=== PATIENT | female | born 1950 | race Caucasian/White ===

== ENCOUNTER 2023-06-03 13:09 | Outpatient (RCR) | payer MEDICARE, OTHER, SELFPAY | END 2023-06-03 23:59 | disposition home or self-care (01) | LOC: RPT 13:09 | PROVIDERS: ATTENDING PHYSICIAN Internal Medicine; FAMILY PHYSICIAN Family Medicine | DX: I89.0 Lymphedema, not elsewhere classified (principal); R26.89 Other abnormalities of gait and mobility; Z73.6 Limitation of activities due to disability | CPT/HCPCS: 97110; 97530 ==

== ENCOUNTER 2023-07-14 12:27 | Outpatient (RCR) | payer MEDICARE, OTHER, SELFPAY | END 2023-07-14 23:59 | disposition home or self-care (01) | LOC: RPT 12:27 | PROVIDERS: ATTENDING PHYSICIAN Internal Medicine; FAMILY PHYSICIAN Family Medicine | DX: I97.2 Postmastectomy lymphedema syndrome (principal); R26.89 Other abnormalities of gait and mobility; Z73.6 Limitation of activities due to disability; C50.919 Malignant neoplasm of unspecified site of unspecified female breast; C77.9 Secondary and unspecified malignant neoplasm of lymph node, unspecified | CPT/HCPCS: 97530 ==

== ENCOUNTER 2023-09-11 22:40 | Inpatient (IN) | payer MEDICARE, OTHER, SELFPAY ==
[2023-09-11] VITALS (21 sets, daily range): BP systolic 70–103; BP diastolic 34–66; BMI 35.5; BMI 34.7
[2023-09-11 19:15] LABS: % Basophils 0.1 % (0-2); % Immature Granulocytes 0.6 % (0-0.5); % Lymphocytes 7.8 % (20.5-51.1); % Neutrophils 84.5 % (42.2-75.2); Absolute Eosinophils 0.1 10^3/uL (0-0.7); Absolute Lymphocytes 0.5 10^3/uL (1.2-3.4); Absolute Monocytes 0.4 10^3/uL (0.1-0.6); Absolute Neutrophils 5.9 10^3/uL (1.4-6.5); Hematocrit 30.5 % (37.0-47.0); Hemoglobin 10.2 g/dL (12.0-16.0); Mean Corp Hgb Conc. 33.4 g/dL (33.0-37.0); Mean Corpuscular Hgb 29.6 pg (27.0-31.0); Mean Corpuscular Volume 88.4 fL (81.0-99.0); Nucleated Red Blood Cells % 0 %; Red Blood Cell Count 3.45 10^6/uL (4.20-5.40); Red Cell Dist. Width 21.2 % (11.5-14.5)
[2023-09-11 19:27] LABS: Lactic Acid 2.5 mmol/L (0.7-2.0)
[2023-09-11 19:34] LABS: Platelet Count 36 10^3/uL (130-400)
[2023-09-11 19:52] LABS: ALT (SGPT) 15 U/L (0-35); AST (SGOT) 26 U/L (14-36); Albumin 2.3 g/dl (3.5-5.0); Alkaline Phosphatase 103 U/L (38-126); Blood Urea Nitrogen 18 mg/dl (7-17); Carbon Dioxide 24 mmol/L (22-30); Chloride 101 mmol/L (98-107); Estimated Creatinine Clearance 88 ml/min; Glucose 118 mg/dl (70-99); Potassium 4.4 mmol/L (3.5-5.1); Sodium 126 mmol/L (135-145); Total Bilirubin 0.7 mg/dl (0.2-1.3); Total Protein 4.6 g/dl (6.3-8.2); eGFR > 60.00
[2023-09-11] MEDS: DILAUDID 1 MG IV (20:27)
--- NOTE | 2023-09-11 20:30 | ED.GENMED ---
History of Present Illness
General
Chief Complaint: Swelling
Source: patient and family (daughter)
Exam Limitations: other (Patient in and out of it)
Time Seen by Provider: 09/11/23 18:32
Travel History
Have you had any contact with someone who has COVID-19?: Unable to Answer
Do you have any symptoms of coronavirus? Fever > 100 degrees, chills, cough, shortness of breath, sore throat, loss of taste or smell, muscle aches, or headache?: Yes
Symptoms:: fever
History of Present Illness
History of Present Illness:
This is a 73 year old female that is brought in with c/o increased pain on the right chest and back and weakness. Daughter states that she has increased pain in her right back area and they felt the area was swelling more. States that they also felt
that the patient was more disoriented then normal. States that she was unable to carry on a conversation so they called the nurse and they sent patient to the ER. States that she was found to have a fever here. Patient states that she also had
chills and SOB. Denies any chest pain, abd pain, nausea, vomiting, diarrhea, headache, dizziness, urinary burning.
Past History
Past History
ED Past Medical History: Asthma, Cancer (Breast CA), COPD, CVA (Right sided facial involvement but daughter states that this is getting better ), GERD, Psychiatric (Anxiety, Depression) and Other (LBBB, 20% EF, Anemia, )
ED Past Surgical History: Appendectomy, Cardiac (Pacemaker), Orthopedic (laminectomy) and Tonsilectomy
Social History
Tobacco: Non-smoker
Alcohol: None
Personal:
Living: fci ([facility])
Review of Systems
Review of Systems
Other source history: family
All Other Systems: ROS reviewed and negative except as documented in HPI and ROS
Constitutional: Reports fever and chills
EENT: Reports no symptoms
Respiratory: Reports trouble breathing; Denies cough
Cardiac: Reports no symptoms; Denies chest pain
ABD/GI: Reports no symptoms; Denies abdominal pain, nausea, vomiting or diarrhea
: Reports no symptoms; Denies dysuria, frequency or urgency
Musculoskeletal: Reports other (right arm pain)
Skin: Reports no symptoms
Neurological: Reports no symptoms; Denies dizzy or headache
Psychiatric: Reports no symptoms
Phy Exam
General Physical Exam
General Presentation: mild distress
General age: appears stated age
General Skin: warm, dry and other (right sided chest shoulder and into back discoloration of skin due to cancer. )
General Habitus: elderly
General Mental: confused (occasionally in and out of confusion)
General Hydration: dry mucous membranes
ENT Exam
ENT Exam: TM's normal and pharynx normal
Eye Exam
Eye Exam: EOMI
Cardiovascular Exam
Cardiovascular Exam: pacemaker
Pulmonary Exam
Pulmonary Exam: no respiratory distress, no rhonchi, no wheezing, no cough and other (rales right lung, left lung clear)
Gastrointestinal Exam
Gastrointestinal Exam: normal bowel sounds, non tender, soft, no organomegaly, no pulsatile mass and non distended
Musculoskeletal Exam
Musculoskeletal Exam: edema (Chronic right arm lymphedema) and other (Swelling of the right chest into the right back area)
Skin Exam
Skin Exam: other (cancer rash of the right chest, breast and around to the back. deep red in color and cries in pain when touched. areas of oozing)
Psychiatric Exam
Psychiatric Exam: other (Crying with pain with movement, In and out of confusion)
Scores
Heart Failure Risk
Heart Failure Risk Score: Not Applicable
Course
Orders/Labs/Results
Orders:
Orders
09/11/23 18:55
EKG PRN [ECG as needed] As Directed
ECG as needed for:: Other reason
Other reason for ECG as needed:: sepsis
09/11/23 18:58
Complete Blood Count/With Diff Urgent
Comprehensive Metabolic Panel Urgent
Lactic Acid Urgent
09/11/23 19:07
Blood Culture Q30M
LISA Source: Blood/Venous
Specimen Description:
Blood Culture Q30M
LISA Source: Blood/Venous
Specimen Description:
09/11/23 20:25
HYDROmorphone [Dilaudid] 1 mg .ROUTE .STK-MED ONE
09/11/23 20:26
HYDROmorphone [Dilaudid] 1 mg IV NOW STA
HYDROmorphone [Dilaudid] 1 mg IV NOW STA
09/11/23 20:27
0.9% Sodium Chloride 500 ml [Nss] 500 ml IV BOLUS
CR Chest Portable - 1 View Urgent
Comment:
Reason For Exam: Rales right chest, SOB
Reason Study Needs to be Portable: Unable to Transport
09/11/23 20:32
Acetaminophen 1000MG/100Ml [Ofirmev] 1,000 mg in 100 ml IV ONCE
Acetaminophen IV Indication:: ED Narcotic Naive Pt-ONCE
09/11/23 20:59
0.9% Sodium Chloride 500 ml [Nss] 500 ml IV BOLUS
Piperacillin/Tazo 3.375 Gram [Zosyn] 3.375 gram in 50 ml IV NOW
Vancomycin 1 Gram/200 ml [Vancocin] 1 gram in 200 ml IV NOW
09/11/23 21:42
Urinalysis Reflex To Culture Urgent
Date Specimen was Collected: 09/11/23
Time Specimen was Collected: 21:41
09/11/23 21:47
Admit/Transfer Patient As Directed
Co-Sign Provider:
Level of Care: Inpatient admission
Assign to:: IMU- Intermediate Care
Physician / Group: Hospitalist
Diagnosis: Sepsis, pain
Reason for Hospitalization: Sepsis, Pain
Expected length of stay greater than two midnights?: Yes
ELOS- Estimated Length of Stay in days: 3
I certify the patient meets the requirements for IP care: Yes
09/11/23 21:50
Code Status As Directed
Resuscitation Status: Full Code
Abnormal Lab Results
09/11/23 09/11/23
18:58 21:42
RBC 3.45 L 10^6/uL
(4.20-5.40)
Hgb 10.2 L g/dL
(12.0-16.0)
Hct 30.5 L %
(37.0-47.0)
RDW 21.2 H %
(11.5-14.5)
Plt Count 36 L 10^3/uL
(130-400)
Absolute Lymphs (auto) 0.5 L 10^3/uL
(1.2-3.4)
Immature Gran % 0.6 H %
(0-0.5)
Neutrophils % 84.5 H %
(42.2-75.2)
Lymphocytes % 7.8 L %
(20.5-51.1)
Sodium 126 L mmol/L
(135-145)
BUN 18 H mg/dl
(7-17)
Glucose 118 H mg/dl
(70-99)
Lactic Acid 2.5 H mmol/L
(0.7-2.0)
Calcium 8.0 L mg/dl
(8.4-10.2)
Total Protein 4.6 L g/dl
(6.3-8.2)
Albumin 2.3 L g/dl
(3.5-5.0)
Urine Ketones Trace A
(Negative)
Urine Bilirubin 1+ A
(Negative)
09/11/23 18:58
09/11/23 18:58
H/H low. Thrombocytopenia, Hyponatremia, Slight Dehydration. Glucose nonfasting, Lactic acid elevation. Calcium slightly low. total protein low. Albumin low lactic 2.5 , Urine negative for infection.
Vital Signs
Initial and Last Documented VS:
Initial Vital Signs
Pulse Resp Pulse Ox
113 21 84
09/11/23 18:42 09/11/23 18:42 09/11/23 18:42
Last Documented Vital Signs
Temp Pulse Resp BP Pulse Ox
103 F H 92 16 85/45 93
09/11/23 18:45 09/11/23 22:00 09/11/23 22:00 09/11/23 22:00 09/11/23 22:00
MDM/Problems Addressed
Differential Diagnosis Includes:
Progression of Breast CA, Septic, PNA
MDM/Problems Addressed:
This is a 73 year old female that comes in with c/o pain in the right back and swelling. Daughter states that her sister felt that her right back was more swollen. sates that the patient has seemed more confused and been going in and out of it.
States that she screams with pain when touched.
Will get labs, Chest x-ray and admit. Explained to daughter that her lactic acid is elevated and her sodium is low. Questioned if patient was on Hospice and daughter states not yet. [facility]o admit patient. Hospitalist notified.
Chronic conditions affecting care: Cancer
Acute Exacerbation and/or Progression of Chronic Illness: Cancer
*Radiology
Radiology exam reviewed: preliminary read by ED provider (Chest- right lower lobe Pneumonia)
*Pulse Oximetry
Patient hypoxic: yes
*EKG
Interpreted by ED Provider?: NA
Rate: EKG- N/A
*Machine Engineer Interpretation
Rate: tachycardiac
Heart Rate: 124
Rhythm: av sequential
*Critical Care Note
Total Time (30-74mins, 75-104mins- exclusive of procedures): Not Applicable
ED Attending Note
-
Portions of this chart may have been created with voice recognition software.� Occasional wrong word or��sound alike� substitutions may have occurred due to the inherent limitations of voice recognition software.
Discharge Plan
Departure
Patient Disposition: Admit
Date of Disposition: 09/11/23
Time of Disposition: 22:29
Admit to: Med/Surg
Presentation/result/management discussed w/ accepting MD/DO: Hospitalist
Patient with high blood pressure during this ER visit?: No
Condition: Fair
Covid-19: Not Applicable
Discharge Problem:
Right lower lobe pneumonia, Hyponatremia, Acute pain control
Prescriptions:
No Action
hydromorphone 2 mg Tablet
3 mg PO Q3HPRN PRN (Reason: pain)
omeprazole 20 mg Tablet,Delayed Release (Dr/Ec)
20 mg PO DAILY
multivitamin Tablet
1 tab PO DAILY
sennosides [senna] 8.6 mg Tablet
17.2 mg PO HS
albuterol sulfate 2.5 mg /3 mL (0.083 %) Solution For Nebulization
2.5 mg INHALATION Q6H PRN (Reason: SOB)
clonazepam 0.5 mg Tablet
0.5 mg PO BID PRN (Reason: anxiety)
morphine 30 mg Tablet Extended Release
30 mg PO Q8H
acetaminophen 500 mg Tablet
1,000 mg PO TID PRN (Reason: pain)
carvedilol 3.125 mg Tablet
3.125 mg PO BID
benzonatate 100 mg Capsule
100 mg PO TID PRN (Reason: cough)
ropinirole 2 mg Tablet
2 mg PO . 1 PM
ropinirole 2 mg Tablet
2 mg PO . 8 PM
losartan 25 mg Tablet
25 mg PO DAILY
morphine 15 mg Tablet Extended Release
15 mg PO . 6 AM
Rx Instructions:
with 30mg tablet
morphine 15 mg Tablet Extended Release
15 mg PO . 2 PM
Rx Instructions:
with 30mg tablet
gabapentin 100 mg Capsule
300 mg PO TID
loratadine [Claritin] 10 mg Tablet
10 mg PO DAILY
bisacodyl 5 mg Tablet
10 mg PO HS
ezetimibe [Zetia] 10 mg Tablet
10 mg PO DAILY
sodium chloride 1,000 mg Tablet,Soluble
1,000 mg PO TID
tiotropium bromide 2.5 mcg/actuation Mist
2 puff INHALATION DAILY
Eliquis 5 mg Tablet
5 mg PO BID
guaifenesin [Mucinex] 600 mg Tablet Extended Release 12hr
600 mg PO Q12H
Referrals:
Sasha Cabrera MD [Family Provider] -
Interventions
Interventions:
*Risk Screen - Suicide Last Done: 09/11/23 18:52
*General Assessment Last Done: 09/11/23 18:52
*Neglect/Abuse Screening Last Done: 09/11/23 18:52
ED- Fall Risk Assessment Last Done: 09/11/23 20:39
*ED COVID-19 Vaccine History Last Done: 09/11/23 18:53
ED- Cardiac Assessment Last Done: 09/11/23 20:39
ED- Pulmonary Assessment Last Done: 09/11/23 20:39
ED-Skin Assessment Last Done: 09/11/23 20:39
Discharge Date and Time
Print Language: VIETNAMESE
[2023-09-11] MEDS: OFIRMEV 100 IV (20:44)
[2023-09-11] MEDS: NSS 500 IV ×2 (20:44→21:48)
[2023-09-11] MEDS: VANCOCIN 200 IV (21:16)
[2023-09-11] MEDS: ZOSYN 50 IV (21:16)
--- NOTE | 2023-09-11 21:23 | HPS.HSE ---
Family Physician
-
Family Physician: Sasha Cabrera
Chief Complaint
-
Chest wall pain
History of Present Illness
73 year old woman with c/o increased pain on the right chest and back, weakness. Patient has had increased pain in her right back area with increased swelling more. Also, more disoriented then normal. She was unable to carry on a conversation so
she was sent to the ER. Found to have a fever in ER, with chills and SOB. She denies any chest pain, abd pain, nausea, vomiting, diarrhea, headache, dizziness, urinary burning. She has metastatic breast cancer, undergoing chemo (last chemo on 08/19),
s/p radiation, planning on more radiation in 3 days. Requires large doses of opioids for pain control.
Medical History
Past Medical History
Past Medical History: Reports Other
Additional Past Medical History:
Asthma,
Cancer (Breast CA),
COPD,
CVA (Right sided facial involvement),
GERD,
Anxiety,
Depression
LBBB,
20% EF,
Anemia
Appendectomy,
Cardiac (Pacemaker)
laminectomy
Tonsilectomy
Past Surgical History: Reports Other
Additional Past Surgical History:
See above
Social History
Tobacco: Non-smoker
Alcohol: None
Living: Residential
Family History
Family History: Not pertinent
Allergies / Home Medications
Allergies reflects when Allergies were last updated in [email or web address].
Home Medications with original date entered in [email or web address]
Allergy/Medication List:
Allergies
Allergy/AdvReac Type Severity Reaction Status Date / Time
aprepitant [From Emend] Allergy Severe Anaphylaxis Verified 10/30/22 09:07
fosaprepitant [From Emend] Allergy Severe Anaphylaxis Verified 10/30/22 09:07
docetaxel Allergy Intermediate Hives Verified 10/30/22 09:07
cyclophosphamide Allergy Mild Rash Verified 10/30/22 09:07
[From Cytoxan]
latex Allergy Mild Rash Verified 10/30/22 09:16
lisinopril Allergy Unknown Verified 09/11/23 18:44
losartan Allergy Unknown Verified 09/11/23 18:43
sacubitril [From Entresto] Allergy Unknown Verified 09/11/23 18:44
simvastatin Allergy Unknown Verified 09/11/23 18:44
valsartan [From Entresto] Allergy Unknown Verified 09/11/23 18:44
iv contrast dye Allergy Swelling Uncoded 10/30/22 09:16
Home Medications
acetaminophen 500 mg tablet 1,000 mg PO TID PRN pain 09/11/23
albuterol sulfate 2.5 mg/3 mL (0.083 %) solution for nebulization 2.5 mg inhalation Q6H PRN SOB 09/11/23
apixaban 5 mg tablet (Eliquis) 5 mg PO BID 09/11/23
benzonatate 100 mg capsule 100 mg PO TID PRN cough 09/11/23
bisacodyl 5 mg tablet 10 mg PO HS 09/11/23
carvedilol 3.125 mg tablet 3.125 mg PO BID 09/11/23
clonazepam 0.5 mg tablet 0.5 mg PO BID PRN anxiety 09/11/23
ezetimibe 10 mg tablet (Zetia) 10 mg PO DAILY 09/11/23
gabapentin 100 mg capsule 300 mg PO TID 09/11/23
guaifenesin 600 mg tablet, extended release 12 hr (Mucinex) 600 mg PO Q12H 09/11/23
hydromorphone 2 mg tablet 3 mg PO Q3HPRN PRN pain 09/11/23
loratadine 10 mg tablet (Claritin) 10 mg PO DAILY 09/11/23
losartan 25 mg tablet 25 mg PO DAILY 09/11/23
morphine 15 mg tablet,extended release 15 mg PO . 2 PM 09/11/23
morphine 15 mg tablet,extended release 15 mg PO . 6 AM 09/11/23
morphine 30 mg tablet,extended release 30 mg PO Q8H 09/11/23
multivitamin 1 tab PO DAILY 09/11/23
omeprazole 20 mg tablet,delayed release 20 mg PO DAILY 09/11/23
ropinirole 2 mg tablet 2 mg PO . 1 PM 09/11/23
ropinirole 2 mg tablet 2 mg PO . 8 PM 09/11/23
sennosides 8.6 mg tablet (senna) 17.2 mg PO HS 09/11/23
sodium chloride 1,000 mg soluble tablet 1,000 mg PO TID 09/11/23
tiotropium bromide 2.5 mcg/actuation mist for inhalation 2 puff inhalation DAILY 09/11/23
Review of Systems
-
History Source: Patient
A 12 point ROS was completed and negative except as noted: Yes
Physical Exam
Vital Signs
Vital Signs
Temp Pulse Resp BP Pulse Ox
103 F H 108 14 84/42 91
09/11/23 18:45 09/11/23 18:45 09/11/23 18:45 09/11/23 18:45 09/11/23 18:45
Physical Exam
General: Well Developed, Well Nourished, Appears in Distress and Pain
HEENT: Nose Appears Normal and Ears Appear Normal
Respiratory: Clear
Cardiac: S1/S2, Regular Rhythm and Tachycardia
GI: Soft and Tender
Musculoskeletal: No Clubbing, Cyanosis and Edema, Right Upper Extremity
Skin: Warm, Dry, Rash and Lesions
Neuro: Awake, Alert, Oriented and AO x 3
Psych: Calm
Laboratory Results
-
09/11/23 18:58
09/11/23 18:58
Laboratory Results
Lactic Acid 2.5 mmol/L (0.7-2.0) H 09/11/23 18:58
Total Bilirubin 0.7 mg/dl (0.2-1.3) 09/11/23 18:58
AST 26 U/L (14-36) 09/11/23 18:58
ALT 15 U/L (0-35) 09/11/23 18:58
Alkaline Phosphatase 103 U/L (38-126) 09/11/23 18:58
Data Reviewed
-
Lab Data: Labs Reviewed by me
Impression/Plan
-
IMPRESSION:
73 woman with metastatic cancer comes in with chest wall pain and sepsis. Notable findings:
BP 84/42
Pulse 108
Temp 103.0
Platelets 36
Na 126
Lactic acid 2.5
PLAN:
1. Sepsis - likely from large wound on right chest wall
IV zosyn
IV saline
2. Hyponatremia - likely hypovolemic, but has known SIADH.
IV saline
Recheck in am
3. Severe pain - from cancer
Give usual pain meds
IV dilaudid for breakthrough pain
End tidal CO2 measurement
4. Cancer treatment / overall prognosis
Has scheduled radiation in a few days
Should try to make this appointment
Discuss hospice and other resources when pain is controlled
5. Low platelets - not bleeding at this time.
Monitor daily
6. Anemia - chronic, near baseline
Monitor daily
Full Code
VCD for DVTP
[2023-09-11 21:52] LABS: Urine Albumin Negative (Neg - Trace); Urine Bilirubin 1+ (Negative); Urine Character Clear (Clear); Urine Color Yellow; Urine Glucose Negative (Negative); Urine Ketone Trace (Negative); Urine Leukocyte Negative (Negative); Urine Nitrite Negative (Negative); Urine Occult Blood Negative (Negative); Urine Specific Gravity 1.015 (<1.030); Urine Urobilinogen Negative (Neg - 1+)
[2023-09-11] MEDS: NSS 1000 IV (23:41)
[2023-09-11] MEDS: SENOKOT 17.1999999999999993 MG PO (23:58)
[2023-09-11] MEDS: MS CONTIN (EXTENDED RELEASE) 30 MG PO (23:58)
[2023-09-11] MEDS: DULCOLAX 10 MG PO (23:58)
[2023-09-11] MEDS: SODIUM CHLORIDE 1 GRAM PO (23:59)
[2023-09-11] MEDS: NEURONTIN 300 MG PO (23:59)
[2023-09-11] MEDS: MUCINEX 600 MG PO (23:59)
[2023-09-12] VITALS (14 sets, daily range): BP systolic 56–122; BP diastolic 43–93; BMI 34.7
[2023-09-12] MEDS: VANCOCIN 200 IV
[2023-09-12] MEDS: REQUIP 2 MG PO ×3 (00:23→20:04)
[2023-09-12 00:30] LABS: Lactic Acid 1.5 mmol/L (0.7-2.0)
--- NOTE | 2023-09-12 03:11 | VATNOTE ---
PT WITH UNACCESSED R SUBQ PRT. R ANTERIOR CHEST AREA AND SHOULDER GROSSLY DISCOLORED, ECCHYMOTIC, SWOLLEN AND NOTED MULTIPLE BLISTERS SURROUNDING IMPLANTED SUBQ PRT AREA. HAVE DEFERRED ACCESSING PRT AT HIS TIME. PT WITH ADEQUATE PERIPHERAL ACCESS IN
LUE. WILL CONSULT HEME/ONC PROVIDER OR HOSPITALIST IN AM TO DETERMINE IF PRT ACCESS WOULD BE APPROPRIATE UNDER THESE CIRCUMSTANCES.PT AND PCN AWARE OF SITUATION AND PLAN OF CARE.
[2023-09-12] MEDS: ZOSYN 50 IV ×4 (03:12→19:58)
--- NOTE | 2023-09-12 04:15 | PTCARENOTE ---
Pt receivd to IMU from ED for sepsis/pain. On arrival to floor pt weak but arousable. AAOx3 but is sometimes confused/forgetful. Right arm, chest, breast and back with +3-4 edema and deep red/purple coloration with blistering to right chest/breast
area. Pt states she has port which is unaccessed. Sasha from IV team called and on floor to assess. Does not feel comfortable accessing since pt has blisters above port site. Would feel more comfortable if pt's oncologist gives ok to access. Will
pass on to day shift RN. +1 edema to LE's pitting. Stage 2 sacral ulcer surrounded by blanchable redness. Wound care completed and documented. Pt has limited ROM to right neck, shoulder and arm. Has compression sleeve on hand only. Daughters stated
pt usually wears an arm compression sleeve but has not been able to lately. Pt admits to 8/ pain to right arm/axillary areas. Medicated with scheduled pain med with good relief. Right lung with rhales. FLETCHER. When asleep obvious sleep apnea.
Capnography/ETCO2 ordered and applied. SR on CM rate 70's-80's. Paced rhythm. Afebrile. Abdomen obese + BS. Ate boxed lunch. Purewick placed. IVF's infusing at 200mls/hr. Oriented to room and surroundings. Call tsai placed on left side. Daughter
Yadira assisted with pt's admission. Will continue to monitor.
[2023-09-12] MEDS: NSS 1000 IV ×4 (05:29→21:20)
[2023-09-12] MEDS: SPIRIVA RESPIMAT 2.5 MCG 2 PUFF INH (07:21)
[2023-09-12] MEDS: ZETIA 10 MG PO (08:18)
[2023-09-12] MEDS: ELIQUIS 5 MG PO (08:18)
[2023-09-12] MEDS: THERAGRAN 1 TABLET PO (08:18)
[2023-09-12] MEDS: SODIUM CHLORIDE 1 GRAM PO ×3 (08:18→21:21)
[2023-09-12] MEDS: CLARITIN 10 MG PO (08:19)
[2023-09-12] MEDS: PROTONIX 40 MG PO (08:19)
[2023-09-12] MEDS: COREG 3.125 MG PO ×2 (08:19→20:01)
[2023-09-12] MEDS: MUCINEX 600 MG PO ×2 (08:19→20:01)
[2023-09-12] MEDS: NEURONTIN 300 MG PO ×3 (08:20→21:20)
[2023-09-12] MEDS: MS CONTIN (EXTENDED RELEASE) PO (08:21)
[2023-09-12] MEDS: MS CONTIN (EXTENDED RELEASE) 15 MG PO ×2 (08:21→14:10)
--- NOTE | 2023-09-12 08:38 | W.PN.HOSP.TC ---
Addendum entered and electronically signed by Edinson Rogers DO 09/12/23 16:44:
I am concerned about right upper extremity swelling and bruising.
Stop Eliquis, especially in light of thrombocytopenia.
Check CT scan of right upper extremity. Hold off on IV contrast given noted allergy with swelling.
Discussed with patient's daughter.
Original Note:
Today's Communication/Plan
-
Await cultures
Continue antibiotics
Fluid restriction
Assessment / Plan
Assessment / Plan
Gen-AAOx3, NAD, obese
HEENT-NC, AT, anicteric, clear oral mm
Neck-supple
CV-reg, no M, +S1/S2
Lungs-clear B/L
Abd-soft, NT, ND
Ext-severe right upper extremity and right chest lymphedema with bruising diffusely, skin breakdown, skin blistering
Musculoskeletal-no cyanosis, clubbing
Skin-warm and dry
Neuro-grossly non-focal
Psych-calm, cooperative
Septic shock -suspect due to right upper extremity skin and soft tissue infection, severe lymphedema. Hemodynamically stable. Await blood cultures. Continue broad-spectrum antibiotics. Hold antihypertensives.
Severe right upper extremity lymphedema/wounds -elevate right upper extremity. Consult wound care. Etiology is due to metastatic breast cancer. She does wear a lymphedema sleeve which seems to help when on.
Metastatic breast cancer -originally diagnosed 13 years ago, treated with lumpectomy radiation and chemotherapy. Cancer recurred about 5 years ago. Last chemotherapy was 2 to 3 weeks ago. Now getting palliative radiation therapy at [facility].
Anemia, thrombocytopenia -likely due to bone marrow suppression from chemotherapy. Repeat labs pending.
Recent stroke -started on Eliquis after the stroke.
SIADH -admission sodium 126. Fluid restriction ordered. Sodium chloride tablets 3 times daily. Repeat labs pending.
Chronic pain syndrome/chronic opiate dependence -due to cancer associated pain. Continue morphine.
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
Essential hypertension -hold antihypertensives for hypotension.
Mild intermittent asthma -stable.
Chronic bronchiectasis
Anxiety/depression
BiV ICD -history of sick sinus syndrome.
Restless leg syndrome
GERD
Hyperlipidemia
Obesity due to excess calories
full code
Anticipated Discharge: > 48 hours
Subjective/Interval History
-
Date of Service: September 12, 2023
Patient seen and examined. Complaining of some discomfort in the right upper extremity, right chest.
Objective Data
-
Labs:
Laboratory Results
09/12/23
06:00
WBC Pending
Hgb Pending
Hct Pending
Plt Count Pending
Sodium Pending
Potassium Pending
Chloride Pending
Carbon Dioxide Pending
BUN Pending
Creatinine Pending
Glucose Pending
Calcium Pending
Total Bilirubin Pending
AST Pending
ALT Pending
Alkaline Phosphatase Pending
Vital Signs:
Vital Signs
Temp Pulse Resp BP Pulse Ox
97.6 F 87 14 106/46 97
09/12/23 03:12 09/12/23 07:25 09/12/23 07:25 09/12/23 04:00 09/12/23 07:25
I&O
09/11/23 09/12/23 09/13/23
06:59 06:59 06:59
Intake Total 1250 / 1250
Balance 1250 / 1250
Review of Systems
-
History Source: Patient
All other systems: Reviewed and negative
[2023-09-12 09:11] LABS: Hematocrit 28.7 % (37.0-47.0); Hemoglobin 9.5 g/dL (12.0-16.0); Mean Corp Hgb Conc. 33.1 g/dL (33.0-37.0); Mean Corpuscular Hgb 29.2 pg (27.0-31.0); Mean Corpuscular Volume 88.3 fL (81.0-99.0); Mean Platelet Volume 9.2 fL (7.4-10.4); Platelet Count 40 10^3/uL (130-400); Red Blood Cell Count 3.25 10^6/uL (4.20-5.40); Red Cell Dist. Width 21.3 % (11.5-14.5)
[2023-09-12 09:32] LABS: ALT (SGPT) 14 U/L (0-35); AST (SGOT) 27 U/L (14-36); Albumin 2.2 g/dl (3.5-5.0); Alkaline Phosphatase 86 U/L (38-126); Blood Urea Nitrogen 14 mg/dl (7-17); Calcium 7.8 mg/dl (8.4-10.2); Carbon Dioxide 23 mmol/L (22-30); Chloride 102 mmol/L (98-107); Estimated Creatinine Clearance 102 ml/min; Glucose 94 mg/dl (70-99); Potassium 3.9 mmol/L (3.5-5.1); Sodium 127 mmol/L (135-145); Total Protein 4.4 g/dl (6.3-8.2); eGFR > 60.00
--- NOTE | 2023-09-12 09:36 | PHA.VAN.IN ---
Assessment
- Assessment
Renal Function: Appears similar to baseline
Concomitant Antimicrobials: ZOSYN
AUC Dosing Plan
- Dosing Variables
Dosing Weight (kg): 103.5
Dosing CrCl (ml/min): 102
Vd coefficient (L/kg): 0.6
- Empiric Dosing
Initial / Loading Dose: 2000MG
Maintenance Regimen: 1250MG Q12H
Estimated AUC (mcg*h/mL): 482
Estimated Peak (mcg*h/mL): 30.7
Estimated Trough (mcg/ml): 12
Estimated Half Life (H): 7.8
- Monitoring
No levels ordered at this time: consider at steady state
Pharmacokinetics Vancomycin I
- -
Patient Age: 73
Patient Sex: Female
Vancomycin Day #: 1
Indication: Other
Requesting Provider: SARAN
Height / Weight:
Height 5 ft 8 in
Actual Weight 103.5 kg
IBW in k.9
- Vital Signs / Lab Results
Temp Pulse Resp BP Pulse Ox
97.6 F 87 14 106/46 97
09/12/23 03:12 09/12/23 07:25 09/12/23 07:25 09/12/23 04:00 09/12/23 07:25
Lab Results - Hematology
09/11/23 09/12/23
18:58 08:59
WBC 7.0 6.0
Lab Results - Chemistry
09/11/23 09/12/23
18:58 08:59
BUN 18 H 14
Creatinine 0.7 0.6
Estimated Creat Clear 88 102
Albumin 2.3 L 2.2 L
09/11/23 09/11/23 09/12/23
18:58 23:55 03:29
Lactic Acid 2.5 H 1.5 Cancelled
09/12/23 09/12/23
07:29 11:29
Lactic Acid Cancelled Cancelled
Lab Results - Urine
09/11/23
21:42
Urine Nitrite (Reflex) Negative
Leukocyte Esterase Rfl Negative
--- NOTE | 2023-09-12 13:59 | CM ---
Received CM consult for hospice evaluation and treatment. Reviewed the chart notes and spoke with the patient at the bedside. Referral sent to Hospice for information on hospice benefits. The patient was recently at [facility] and
transferred to [facility] at [facility]. The patient resides alone in an independent apartment at [facility]. The patient has a rolling walker and wheelchair. The patient has not had VN in the past. CM continues to be available to
patient/family and is monitoring medical plan for needs at discharge.
Plan: Discharge plans will depend on the patient's progress.
[2023-09-12] MEDS: MS CONTIN (EXTENDED RELEASE) 30 MG PO ×2 (14:10→21:20)
--- NOTE | 2023-09-12 14:16 | CM ---
Received TT from the patient's RN that the family was requesting information on Healthcare Directives. Family provided with DH packet which contained Living Will and Healthcare Power of Envelope Folder Advance Directive blank copies for family to review
and complete at their leisure.
--- NOTE | 2023-09-12 15:04 | HOSPNOTE ---
Spoke with Marina the patients daughter regarding Hospice philosophy and care. Family reports they are not able to provide care and will be looking for a SNF . Hospice will f\\u with the family tomorrow . They could not continue the conversation as
the doctor had arrived in the room.They were agreeable to further conversation tomorrow
[2023-09-12] MEDS: DILAUDID 1 MG IV (15:23)
[2023-09-12] MEDS: VANCOCIN 275 MG IV (18:03)
[2023-09-12 19:22] LABS: Osmolality Urine 585 mOsm/kg (300-900)
[2023-09-12 20:22] LABS: Urine Sodium 169 mmol/L (30-90)
[2023-09-12 20:59] LABS: Procalcitonin 0.37 ng/ml (0.0-0.25)
[2023-09-12] MEDS: SENOKOT 17.1999999999999993 MG PO (21:20)
[2023-09-12] MEDS: DULCOLAX 10 MG PO (21:20)
[2023-09-12] MEDS: NSS IV (22:15)
--- NOTE | 2023-09-12 22:34 | PTCARENOTE ---
Addendum entered by Cyndi Horton RN 09/13/23 06:32:
R radial pulse present with doppler.
Original Note:
Received pt at start of shift. aaox3, sleepy but very easily aroused. AVpaced, on RA. RUE very ecchymotic, +3/4 edema, arm compressed with mejia wraps, fluid filled blisters on arm, painful. Pain meds given. Purewick in place. PCT drawn. BP's running
soft, IVF running. IVABX given. Will monitor.
[2023-09-13] VITALS (12 sets, daily range): BP systolic 84–117; BP diastolic 41–83; PULSE 92; O2SAT 96; BMI 36.5
[2023-09-13] MEDS: DILAUDID 1 MG IV ×3 (02:54→16:09)
[2023-09-13] MEDS: ZOSYN 50 IV ×4 (02:54→20:01)
[2023-09-13] MEDS: NSS 1000 IV (06:07)
[2023-09-13] MEDS: VANCOCIN 275 MG IV ×2 (06:07→18:04)
[2023-09-13] MEDS: MS CONTIN (EXTENDED RELEASE) 30 MG PO ×3 (06:07→21:20)
[2023-09-13 06:29] LABS: % Basophils 0.2 % (0-2); % Eosinophils 1.9 % (0-6); % Immature Granulocytes 0.6 % (0-0.5); % Lymphocytes 11.9 % (20.5-51.1); % Monocytes 5.1 % (1.7-9.3); % Neutrophils 80.3 % (42.2-75.2); Absolute Eosinophils 0.1 10^3/uL (0-0.7); Absolute Lymphocytes 0.6 10^3/uL (1.2-3.4); Absolute Monocytes 0.2 10^3/uL (0.1-0.6); Absolute Neutrophils 3.8 10^3/uL (1.4-6.5); Hemoglobin 9.2 g/dL (12.0-16.0); Mean Corp Hgb Conc. 32.9 g/dL (33.0-37.0); Mean Corpuscular Hgb 29.5 pg (27.0-31.0); Mean Corpuscular Volume 89.7 fL (81.0-99.0); Mean Platelet Volume 9.6 fL (7.4-10.4); Nucleated Red Blood Cells % 0 %; Platelet Count 42 10^3/uL (130-400); Red Blood Cell Count 3.12 10^6/uL (4.20-5.40); Red Cell Dist. Width 21.2 % (11.5-14.5); White Blood Cell Count 4.7 10^3/uL (4.8-10.8)
[2023-09-13 06:57] LABS: Blood Urea Nitrogen 10 mg/dl (7-17); Calcium 7.9 mg/dl (8.4-10.2); Carbon Dioxide 23 mmol/L (22-30); Chloride 104 mmol/L (98-107); Estimated Creatinine Clearance 105 ml/min; Glucose 97 mg/dl (70-99); Potassium 3.9 mmol/L (3.5-5.1); Sodium 128 mmol/L (135-145); eGFR > 60.00
[2023-09-13] MEDS: SPIRIVA RESPIMAT 2.5 MCG 2 PUFF INH (07:49)
[2023-09-13] MEDS: SODIUM CHLORIDE 1 GRAM PO ×3 (07:55→21:20)
[2023-09-13] MEDS: MUCINEX 600 MG PO ×2 (07:55→20:00)
[2023-09-13] MEDS: ZETIA 10 MG PO (07:56)
[2023-09-13] MEDS: CLARITIN 10 MG PO (07:56)
[2023-09-13] MEDS: PROTONIX 40 MG PO (07:56)
[2023-09-13] MEDS: NEURONTIN 300 MG PO ×3 (07:56→21:20)
[2023-09-13] MEDS: THERAGRAN 1 TABLET PO (07:56)
[2023-09-13] MEDS: COREG 3.125 MG PO ×2 (07:56→20:00)
[2023-09-13] MEDS: MS CONTIN (EXTENDED RELEASE) 15 MG PO ×2 (07:56→13:58)
--- NOTE | 2023-09-13 09:00 | PTCARENOTE ---
Patient received from warehouse supervisor 3rd shift. Patient resting comfortably in bed. AAO, VSS. No events noted overnight. Some complaints of pain in the right arm, see MAR regarding pain control. Currently on Room Air. Right arm +4 edema, red and bruise.
KEON wrap during the day and arm supported. Continuing ABX. Call tsai in reach.
--- NOTE | 2023-09-13 09:41 | PHA.VAN.FU ---
Vancomycin Assessment / Plan
- Assessment
Renal Function: Stable
WBC's are: WNL
In the past 24 hrs, patient has been: Afebrile
Concomitant Antimicrobials: Piperacillin/Tazobactam
- Dosing Plan
Continue: 1250mg Q12H
- Monitoring Plan
No level(s) ordered at this time: Consider levels in next few days
- Follow Up
Pharmacy will continue to follow.
Vancomycin Follow UP
- -
Patient Age: 73
Patient Sex: Female
Vancomycin Day #: 2
Indication: Other
Requesting Provider: SARAN
Height / Weight:
Height 5 ft 8 in
Actual Weight 108.9 kg
IBW in k.9
- Vital Signs / Lab Results
Temp Pulse Resp BP Pulse Ox
98 F 88 18 113/53 95
09/13/23 07:09 09/13/23 07:56 09/13/23 07:52 09/13/23 07:56 09/13/23 07:52
Lab Results - Hematology
09/11/23 09/12/23 09/13/23
18:58 08:59 06:08
WBC 7.0 6.0 4.7 L
Lab Results - Chemistry
09/11/23 09/12/23 09/13/23
18:58 08:59 06:08
BUN 18 H 14 10
Creatinine 0.7 0.6 0.6
Estimated Creat Clear 88 102 105
Albumin 2.3 L 2.2 L
09/11/23 09/11/23 09/12/23
18:58 23:55 03:29
Lactic Acid 2.5 H 1.5 Cancelled
09/12/23 09/12/23
07:29 11:29
Lactic Acid Cancelled Cancelled
Microbiology Results
09/11/23 19:07 Blood Culture - Preliminary
Blood/Venous No Growth in 24 hours- Final report to follow
09/11/23 19:07 Blood Culture - Preliminary
Blood/Venous No Growth in 24 hours- Final report to follow
[2023-09-13] MEDS: DILAUDID 3 MG PO ×2 (10:25→15:01)
--- NOTE | 2023-09-13 11:20 | CM ---
Patient from [facility] at [facility] with Hx Metastatic breast cancer with Dx Septic shock -suspect due to right upper extremity skin and soft tissue infection, severe lymphedema. Room air. Receiving MS Contin, IV Abx.
Spoke with patient's daughter Gulshan; the daughters are not interested in their mother returning to [facility] as they thought there was inadequate nurse staff to her help. The daughters are considering SNF with hospice vs home with 24 hr
caregiver with hospice. Reviewed hospice benefits. Gulshan has contacted the Adms Depts at [facility] and [facility] and left messages. She is agreeable to SNF referrals. Gulshan says her sister was looking into caregivers - agree to send the
Caregiver list to Gulshan's email ----> [email or web address].
Spoke with Marilin, [facility]; she spoke with the family and is aware that they are declining to allow their mother to return.
Phone call to Daiana, [facility]; left message requesting response to referral.
Plan follow up SNF referrals.
Plan follow up with family re; SNF with hospice vs home with 24 hr caregiver with hospice.
--- NOTE | 2023-09-13 13:26 | W.PN.HOSP.TC ---
Today's Communication/Plan
-
Monitor vital signs see plan
Family is interested in hospice, eval ongoing
Pain control
Continue with antibiotics
Monitor sodium
Assessment / Plan
Assessment / Plan
Gen-AAOx3, NAD, obese
HEENT-NC, AT, anicteric, clear oral mm
Neck-supple
CV-reg, no M, +S1/S2
Lungs-clear B/L
Abd-soft, NT, ND
Ext-severe right upper extremity and right chest lymphedema with bruising diffusely, skin breakdown, skin blistering
Musculoskeletal-no cyanosis, clubbing
Skin-warm and dry
Neuro-grossly non-focal
Psych-calm, cooperative
Septic shock -suspect due to right upper extremity skin and soft tissue infection, severe lymphedema. Hemodynamically stable. Await blood cultures. Continue broad-spectrum antibiotics. Hold antihypertensives.
Severe right upper extremity lymphedema/wounds -elevate right upper extremity. Consult wound care. Etiology is due to metastatic breast cancer. She does wear a lymphedema sleeve which seems to help when on.
Metastatic breast cancer -originally diagnosed 13 years ago, treated with lumpectomy radiation and chemotherapy. Cancer recurred about 5 years ago. Last chemotherapy was 2 to 3 weeks ago. Now getting palliative radiation therapy at [place]. per
patient she was unable to get palliative radiation. She follows up with Dr Eula Milner at [facility]
Does have significant right upper extremity swelling and bruising. CT scan with soft tissue swelling. No abscess
procal +; on abx for cellulitis
Anemia, thrombocytopenia -likely due to bone marrow suppression from chemotherapy.
Holding Eliquis
Recent stroke -started on Eliquis after the stroke. Which is now on hold
SIADH -sodium 128. Fluid restriction ordered. Sodium chloride tablets 3 times daily.
Chronic pain syndrome/chronic opiate dependence -due to cancer associated pain. Continue morphine.
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
Essential hypertension -hold antihypertensives for hypotension.
Mild intermittent asthma -stable.
Chronic bronchiectasis
Anxiety/depression
BiV ICD -history of sick sinus syndrome.
Restless leg syndrome
GERD
Hyperlipidemia
Obesity due to excess calories
full code
Spoke with patient primary oncologist Dr. Milner from [place] and she will also be speaking to family later today. Spoke with daughter who is interested in hospice. hospice already met with patient and family. Daughter will speak to patient
regarding code status tonite.
I spent a total of 53 minutes with the patient or on the floor. More than 50% of this time involved counseling and coordination of care.
Anticipated Discharge: Within 24 hours
Subjective/Interval History
-
Date of Service: September 13, 2023
has pain
Objective Data
-
Labs:
Laboratory Results
09/13/23
06:08
WBC 4.7 L
Hgb 9.2 L
Hct 28.0 L
Plt Count 42 L
Sodium 128 L
Potassium 3.9
Chloride 104
Carbon Dioxide 23
BUN 10
Creatinine 0.6
Glucose 97
Calcium 7.9 L
Vital Signs:
Vital Signs
Temp Pulse Resp BP Pulse Ox
97.9 F 88 18 113/53 96
09/13/23 11:18 09/13/23 07:56 09/13/23 07:52 09/13/23 07:56 09/13/23 13:15
I&O
09/12/23 09/13/23 09/14/23
06:59 06:59 06:59
Intake Total 1250 / 1250 540 / 540
Output Total 600 / 600 500 / 500
Balance 1250 / 1250 -60 / -60 -500 / -500
[2023-09-13] MEDS: REQUIP 2 MG PO ×2 (13:58→20:01)
--- NOTE | 2023-09-13 14:36 | WOUNDNOTE ---
R UPPER CHEST BLISTERS
--- NOTE | 2023-09-13 14:37 | WOUNDNOTE ---
R UPPER BACK AND POSTERIOR ARM
--- NOTE | 2023-09-13 14:40 | WOUNDNOTE ---
WON RN note: Patient admitted with R lower lobe pneumonia and sepsis.
See H&P for complete history.
PMH: COPD,CVA,PM,Laminectomy, Breast Cancer x 13 yrs, lumpectomy radiation and chemotherapy,lymphedema.
Wound Location and type/assessment: Patient admitted with: R arm and chest with dark red/purple discoloration, lymphedema and new blistering on R upper chest/breast and crease of Axilla. CT scan of R arm showed edema and skin thickening but no
abscess or bone infection. R neck/shoulder area with raised tumor. Patient got chemotherapy 2-3 wks ago, goes to Dr. Alf Gillespie oncologist. Patient states lymphedema and discoloration is chronic but blisters are new and more swollen. Weeping
from open blisters in crease of Axilla, chest blisters intact, very painful reports patient. Nurse Sanju assisted with turning patient and premedicated for pain. R upper back with purple discolored skin no blisters. R buttock with cluster of semi
open blisters, suspect stage 2 PI. Heels and legs are intact. Pillow in use under R arm for elevation. Hospice is being considered by family and patient.
Appetite: Good.
Pressure redistribution devices in place: On [facility] air bed. Asked nurse if patient being transferred to floor to make sure she is on an air mattress, [facility] air bed. Repositioned onto L semi side lying position.
Plan: Applied hydrogel and soft non woven gauze in Axilla crease. With assist from nurse re applied mejia wrap to R arm.
Changed foam to buttocks. Will confirm orders with hospitalist and update nurse.
Updated care plan and will follow as needed.
Note to case management of equipment requested for discharge:
--- NOTE | 2023-09-13 15:14 | HOSPNOTE ---
Spoke with case management, multiple referrals sent to SNF for placement, once patient finds placement we will sign onto hospice care.
[2023-09-13] MEDS: DILAUDID 4 MG PO (20:05)
[2023-09-13] MEDS: DULCOLAX 10 MG PO (21:20)
[2023-09-13] MEDS: SENOKOT 17.1999999999999993 MG PO (21:20)
[2023-09-13] MEDS: TYLENOL 1000 MG PO (21:20)
[2023-09-14] VITALS (13 sets, daily range): BP systolic 87–122; BP diastolic 44–94; BMI 36.5
[2023-09-14] MEDS: ZOSYN 50 IV ×4 (01:42→21:11)
[2023-09-14] MEDS: DILAUDID 4 MG PO ×3 (03:55→16:15)
[2023-09-14] MEDS: VANCOCIN 275 MG IV (06:06)
[2023-09-14] MEDS: MS CONTIN (EXTENDED RELEASE) 15 MG PO ×2 (06:06→14:23)
[2023-09-14] MEDS: MS CONTIN (EXTENDED RELEASE) 30 MG PO ×3 (06:06→21:11)
[2023-09-14] MEDS: SPIRIVA RESPIMAT 2.5 MCG 2 PUFF INH (07:25)
[2023-09-14] MEDS: MUCINEX 600 MG PO ×2 (07:44→21:10)
[2023-09-14] MEDS: TYLENOL PO (07:45)
[2023-09-14] MEDS: SODIUM CHLORIDE 1 GRAM PO ×3 (07:45→21:12)
[2023-09-14] MEDS: COREG 3.125 MG PO ×2 (07:45→21:10)
[2023-09-14] MEDS: NEURONTIN 300 MG PO ×3 (07:45→21:11)
[2023-09-14] MEDS: CLARITIN 10 MG PO (07:45)
[2023-09-14] MEDS: THERAGRAN 1 TABLET PO (07:45)
[2023-09-14] MEDS: PROTONIX 40 MG PO (07:45)
[2023-09-14] MEDS: ZETIA 10 MG PO (07:45)
--- NOTE | 2023-09-14 09:10 | PTCARENOTE ---
Patient received from night shift supervisor. Patient resting comfortably in bed. AAO, VSS. No events noted overnight. No significant complaints of pain in the right arm, see MAR regarding pain control. Currently on Room Air. Right arm remains at +4
edema, red and bruise. Port to be accessed. KEON wrap during the day and arm supported. Continuing ABX. Call tsai in reach.
[2023-09-14 09:13] LABS: % Basophils 0.2 % (0-2); % Eosinophils 1.3 % (0-6); % Immature Granulocytes 0.4 % (0-0.5); % Monocytes 4.4 % (1.7-9.3); % Neutrophils 83.7 % (42.2-75.2); Absolute Eosinophils 0.1 10^3/uL (0-0.7); Absolute Lymphocytes 0.5 10^3/uL (1.2-3.4); Absolute Monocytes 0.2 10^3/uL (0.1-0.6); Hematocrit 29.3 % (37.0-47.0); Hemoglobin 9.4 g/dL (12.0-16.0); Mean Corp Hgb Conc. 32.1 g/dL (33.0-37.0); Mean Corpuscular Hgb 29.2 pg (27.0-31.0); Mean Platelet Volume 9.3 fL (7.4-10.4); Nucleated Red Blood Cells % 0 %; Platelet Count 56 10^3/uL (130-400); Red Blood Cell Count 3.22 10^6/uL (4.20-5.40); Red Cell Dist. Width 20.8 % (11.5-14.5); White Blood Cell Count 4.8 10^3/uL (4.8-10.8)
--- NOTE | 2023-09-14 09:52 | CM ---
Patient from [facility] at [facility] with Hx Metastatic breast cancer with Dx Septic shock -suspect due to right upper extremity skin and soft tissue infection, severe lymphedema. Room air. Receiving IV Dilaudid prn, MS Roma, IV Abx.
Seen by [facility] nurse - daily wound care to right axilla crease/chest. PT & OT; requires assist of 2, recommend skilled rehab.
Extensive conversation with daughter Marina; her mother spoke with her oncologist from [place] and she is interested in pursuing XRT and going home to her [facility] apartment without hospice. The 3 daughters have concerns that patient is in a
weakened state and she will fail at home. Marina would like to talk with Dr Gonzalez again whether going home without hospice is a realistic plan---> message to Dr Gonzalez.
Marina spoke with Michelle at [facility] but is not going forward with completing their application for LTC at this time.
CM spoke with Gian Ahmadi yesterday; no available beds until possibly 09/14.
If patient will be going home without hospice daughter requests hospital bed, wide w/c and [facility]. She received the Caregiver list and will be looking into hiring a 24 hr caregiver. She is aware patient requires assist of 2 for
transfers/ambulation and can only walk a few feet, so would need bedside commode. Caregiver would need to assist with personal care, toileting, and patient would need assistance with wound care and pain meds. Daughter requesting Palliative Care if
they decide against hospice. Family would need to arrange transport to radiation therapy appointments. The 3 daughters (Marina, Margie & Yadira) are taking turns assisting the patient as Marina works.
Marina agrees to let CM know the patient/family's final d/c decisions.
Plan follow up with patient/daughter re; home with hospice & caregiver vs home with palliative care, [facility], DME, caregiver.
[2023-09-14 10:26] LABS: Blood Urea Nitrogen 9 mg/dl (7-17); Calcium 8.1 mg/dl (8.4-10.2); Carbon Dioxide 22 mmol/L (22-30); Chloride 103 mmol/L (98-107); Estimated Creatinine Clearance 105 ml/min; Glucose 138 mg/dl (70-99); Potassium 3.9 mmol/L (3.5-5.1); Sodium 129 mmol/L (135-145); eGFR > 60.00
--- NOTE | 2023-09-14 12:38 | W.PN.HOSP.TC ---
Today's Communication/Plan
-
Monitor vital signs see plan
Pain control
Continue with antibiotics
Currently patient wants to hold off on hospice
monitor sodium
Monitor thrombocytopenia
Assessment / Plan
Assessment / Plan
Gen-AAOx3, NAD, obese
HEENT-NC, AT, anicteric, clear oral mm
Neck-supple
CV-reg, no M, +S1/S2
Lungs-clear B/L
Abd-soft, NT, ND
Ext-severe right upper extremity and right chest lymphedema with bruising diffusely, skin breakdown, skin blistering
Musculoskeletal-no cyanosis, clubbing
Skin-warm and dry
Neuro-grossly non-focal
Psych-calm, cooperative
Severe sepsis -suspect due to right upper extremity skin and soft tissue infection, severe lymphedema. Hemodynamically stable. Await blood cultures. Continue broad-spectrum antibiotics. Hold antihypertensives.
Severe right upper extremity lymphedema/wounds -elevate right upper extremity. Consult wound care. Etiology is due to metastatic breast cancer. She does wear a lymphedema sleeve which seems to help when on.
Metastatic breast cancer -originally diagnosed 13 years ago, treated with lumpectomy radiation and chemotherapy. Cancer recurred about 5 years ago. Last chemotherapy was 2 to 3 weeks ago. Now getting palliative radiation therapy at [facility]. per
patient she was unable to get palliative radiation. She follows up with Dr Eula Milner at [facility]
Does have significant right upper extremity swelling and bruising. CT scan with soft tissue swelling. No abscess
procal +; on abx for cellulitis
Per my conversation with Dr. Milner (oncologist at [facility]); patient prognosis is months if dont get therapy and likely 2-3 years if gets therapy. Patient worked with physical therapy yesterday and felt that she might improve so she wants to hold
off on hospice at this time. Will see how patient does in the hospital and patient and family will revisit hospice if necessary.
Anemia, thrombocytopenia -likely due to bone marrow suppression from chemotherapy.
Holding Eliquis
If thrombocytopenia continues to improve then will restart Eliquis
Recent stroke -started on Eliquis after the stroke. Which is now on hold
SIADH -sodium 129. Fluid restriction ordered. Sodium chloride tablets 3 times daily.
Chronic pain syndrome/chronic opiate dependence -due to cancer associated pain. Continue morphine.
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
Essential hypertension -hold antihypertensives for hypotension.
Mild intermittent asthma -stable.
Chronic bronchiectasis
Anxiety/depression
BiV ICD -history of sick sinus syndrome.
Restless leg syndrome
GERD
Hyperlipidemia
Obesity due to excess calories
full code
Per my conversation with Dr. Milner (oncologist at [facility]); patient prognosis is months if dont get therapy and likely 2-3 years if gets therapy. Patient worked with physical therapy yesterday and felt that she might improve so she wants to hold
off on hospice at this time. Will see how patient does in the hospital and patient and family will revisit hospice if necessary.
I spent a total of 52 minutes with the patient or on the floor. More than 50% of this time involved counseling and coordination of care.
Anticipated Discharge: > 48 hours
Subjective/Interval History
-
Date of Service: September 14, 2023
denies nausea
Objective Data
-
Labs:
Laboratory Results
09/14/23 09/14/23
04:13 08:54
WBC Cancelled 4.8
Hgb Cancelled 9.4 L
Hct Cancelled 29.3 L
Plt Count Cancelled 56 L D
Sodium Cancelled 129 L
Potassium Cancelled 3.9
Chloride Cancelled 103
Carbon Dioxide Cancelled 22
BUN Cancelled 9
Creatinine Cancelled 0.6
Glucose Cancelled 138 H
Calcium Cancelled 8.1 L
Vital Signs:
Vital Signs
Temp Pulse Resp BP Pulse Ox
98.6 F 91 18 110/48 97
09/14/23 11:28 09/14/23 07:45 09/14/23 07:27 09/14/23 07:45 09/14/23 07:27
I&O
09/13/23 09/14/23 09/15/23
06:59 06:59 06:59
Intake Total 540 / 540 100 / 100 300 / 300
Output Total 600 / 600 1100 / 1100
Balance -60 / -60 -1000 / -1000 300 / 300
--- NOTE | 2023-09-14 12:39 | PN.CDI ---
CDI
- -
CDI:
Physician Documentation Request
Admit Date: 09/11/23 22:40
Dear Doctor Carlos,
09/12 WOCN note states ' R buttock with cluster of semi ipen blisters, suspect stage 2 PI'
Physician documentation of the type and location of wounds is required for compliant documentation. Based on the above clinical findings and your assessment, please provide the following in your progress note:
1. Location of the ulcer/wound, including laterality.
2. Type (etiology) of ulcer/wound:
- Pressure (decubitus) ulcer
- Non-healing surgical wound
- Other
Use of terms such as suspected, likely, concern for, or probable (associated with a specific diagnosis that is being evaluated, monitored, or treated as if it exists) are acceptable and can be coded in the inpatient setting, when documented at the
time of discharge.
Thank you,
Payton Olivia RN, BSN
CDI Specialist
tiger text
Please use your independent medical judgment in providing your response.
*Source: National Pressure Ulcer Advisory Panel (NPUAP)
--- NOTE | 2023-09-14 12:41 | PN.CDI ---
CDI
- -
CDI:
Physician Documentation Request
Admit Date: 09/11/23 22:40
Dear Doctor Carlos,
Patient is admitted with sepsis.
ED record states 'states that they also felt the patient if more disoriented then normal' exam at that time 'General Mental: confused '
Based on the above, could you clarify in the Progress Notes which is the most likely etiology of the confusion/altered mental status.
Encephalopathy - indicate type, such as metabolic, toxic, septic, alcoholic, anoxic, hypertensive etc. due to a specific condition such as UTI, CVA, hyponatremia etc.
Acute Delirium - indicate known or suspected etiology such as postoperative, due to opioids or other drugs etc. Can also indicate unknown or mixed etiologies.
Acute or subacute confusional state due to ____ (specify known or suspected etiology)
Other
Use of terms such as suspected, likely, concern for, or probable (associated with a specific diagnosis that is being evaluated, monitored, or treated as if it exists) are acceptable and can be coded in the inpatient setting, when documented at the
time of discharge.
Thank you,
Payton Olivia RN, BSN
CDI Specialist
tiger text
Please use your independent medical judgment in providing your response.
[2023-09-14] MEDS: REQUIP 2 MG PO ×2 (14:22→21:11)
[2023-09-14] MEDS: MIRALAX 17 GRAMS PO (14:23)
--- NOTE | 2023-09-14 15:54 | VNURNOTE ---
Home Health Liaison spoke with patient's daughter Marina by phone at 1530. Lengthy discussion to discuss [facility] nurse/therapy, visits, schedule and homebound status. Marina is agreeable and understands that visits at home will be 2-3 x per week to
assess and teach medical management along with wound care. Private caregivers discussed and Marina is planning on hiring caregiver for 24 hour coverage.
[facility] contact information provided by text. Marina is aware that [facility] will contact them for start of care in 1-2 days after discharge from .
[facility] referral to be completed in Care Port closer to discharge.
DME requested by daughter= hospital bed, wheelchair, bedside commode at discharge to be ordered closer to discharge date.
[2023-09-14] MEDS: TYLENOL 1000 MG PO ×2 (16:15→21:12)
[2023-09-14] MEDS: DULCOLAX 10 MG PO (21:11)
[2023-09-14] MEDS: SENOKOT 17.1999999999999993 MG PO (21:11)
--- NOTE | 2023-09-14 22:19 | PTCARENOTE ---
Received pt at start of shift. aaox3, pleasant, family at bedside. AV paced, remains on RA. C/o pain in R arm. R arm remains +3 edema, icepacks applied to reduce discomfort. VSS, BP's can run soft. Q2T. SCDS. Purewick. IVabx. R radial pulse present
with doppler. No other issues at this time. Will monitor.
[2023-09-15] VITALS (16 sets, daily range): BP systolic 88–145; BP diastolic 46–68; PULSE 88; BMI 36.9
[2023-09-15] MEDS: ZOSYN 50 IV ×4 (01:37→19:59)
[2023-09-15] MEDS: MS CONTIN (EXTENDED RELEASE) 30 MG PO ×3 (04:08→20:20)
[2023-09-15] MEDS: MS CONTIN (EXTENDED RELEASE) 15 MG PO ×2 (04:08→14:17)
[2023-09-15 04:37] LABS: % Basophils 0.2 % (0-2); % Eosinophils 2.5 % (0-6); % Immature Granulocytes 0.7 % (0-0.5); % Lymphocytes 13.9 % (20.5-51.1); % Monocytes 6.2 % (1.7-9.3); % Neutrophils 76.5 % (42.2-75.2); Absolute Eosinophils 0.1 10^3/uL (0-0.7); Absolute Lymphocytes 0.6 10^3/uL (1.2-3.4); Absolute Monocytes 0.3 10^3/uL (0.1-0.6); Absolute Neutrophils 3.1 10^3/uL (1.4-6.5); Hematocrit 27.8 % (37.0-47.0); Hemoglobin 8.9 g/dL (12.0-16.0); Mean Corpuscular Hgb 28.9 pg (27.0-31.0); Mean Corpuscular Volume 90.3 fL (81.0-99.0); Mean Platelet Volume 10.1 fL (7.4-10.4); Nucleated Red Blood Cells % 0 %; Platelet Count 68 10^3/uL (130-400); Red Blood Cell Count 3.08 10^6/uL (4.20-5.40); Red Cell Dist. Width 21.2 % (11.5-14.5)
[2023-09-15 05:07] LABS: Blood Urea Nitrogen 10 mg/dl (7-17); Calcium 8.2 mg/dl (8.4-10.2); Carbon Dioxide 23 mmol/L (22-30); Chloride 104 mmol/L (98-107); Estimated Creatinine Clearance 105 ml/min; Glucose 91 mg/dl (70-99); Potassium 3.9 mmol/L (3.5-5.1); Sodium 129 mmol/L (135-145); eGFR > 60.00
[2023-09-15] MEDS: DILAUDID 4 MG PO ×5 (06:14→23:36)
[2023-09-15] MEDS: SPIRIVA RESPIMAT 2.5 MCG 2 PUFF INH (07:49)
[2023-09-15] MEDS: CLARITIN 10 MG PO (08:07)
[2023-09-15] MEDS: PROTONIX 40 MG PO (08:07)
[2023-09-15] MEDS: SODIUM CHLORIDE 1 GRAM PO ×3 (08:07→20:20)
[2023-09-15] MEDS: ZETIA 10 MG PO (08:07)
[2023-09-15] MEDS: MUCINEX 600 MG PO ×2 (08:07→20:19)
[2023-09-15] MEDS: COREG 3.125 MG PO ×2 (08:08→20:20)
[2023-09-15] MEDS: NEURONTIN 300 MG PO ×3 (08:08→20:20)
[2023-09-15] MEDS: THERAGRAN 1 TABLET PO (08:08)
[2023-09-15] MEDS: TYLENOL 1000 MG PO ×3 (08:08→20:20)
[2023-09-15] MEDS: MIRALAX 17 GRAMS PO (08:09)
[2023-09-15] MEDS: REQUIP 2 MG PO ×2 (12:56→20:20)
--- NOTE | 2023-09-15 13:02 | CM ---
CM following re: discharge planning.
Reviewed pt's chart, met with pt and spoke to pt's daughter Pan over the phone to update ion discharge plan progress.
Per CM note follow up with pt and her daughters regarding discharge planning.
PT and OT evaluations noted - SNF level of care recommended.
CM spoke to pt's daughter Pan and she confirmed that her mother does not want to go to [facility] and she is requested to return back to her apartment at [facility].
Pt's daughter stated that pt will have [facility] 24/7 caregiver services. Pt's daughter is requested to make a referral [facility] and per daughter pt will resume palliative care services.
[facility] liaison following.
D/C plan: return back to independent apartment at [facility] with [facility] 24/7 caregiver services, [facility] and resumptions of palliative care.
CM will follow with discharge plan updates as hospitalization progresses
--- NOTE | 2023-09-15 13:34 | W.PN.HOSP.TC ---
Today's Communication/Plan
-
monitor vital signs and see plan
Monitor hemoglobin
Monitor platelets
If platelet continues to improve and hemoglobin stable then likely will start Eliquis
Pain control
Continue with antibiotics
PT/OT
Assessment / Plan
Assessment / Plan
Gen-AAOx3, NAD, obese
HEENT-NC, AT, anicteric, clear oral mm
Neck-supple
CV-reg, no M, +S1/S2
Lungs-clear B/L
Abd-soft, NT, ND
Ext-severe right upper extremity and right chest lymphedema with bruising diffusely, skin breakdown, skin blistering
Musculoskeletal-no cyanosis, clubbing
Skin-warm and dry
Neuro-grossly non-focal
Psych-calm, cooperative
Severe sepsis -suspect due to right upper extremity skin and soft tissue infection, severe lymphedema. Hemodynamically stable. Await blood cultures. Continue broad-spectrum antibiotics. Hold antihypertensives.
Severe right upper extremity lymphedema/wounds -elevate right upper extremity. Consult wound care. Etiology is due to metastatic breast cancer. She does wear a lymphedema sleeve which seems to help when on.
Metastatic breast cancer -originally diagnosed 13 years ago, treated with lumpectomy radiation and chemotherapy. Cancer recurred about 5 years ago. Last chemotherapy was 2 to 3 weeks ago. Now getting palliative radiation therapy at [place]. per
patient she was unable to get palliative radiation. She follows up with Dr Eula Milner at [facility]
Does have significant right upper extremity swelling and bruising. CT scan with soft tissue swelling. No abscess
procal +; on abx for cellulitis
Per my conversation with Dr. Milner (oncologist at [facility]); patient prognosis is months if dont get therapy and likely 2-3 years if gets therapy. Patient worked with physical therapy yesterday and felt that she might improve so she wants to hold
off on hospice at this time. Will see how patient does in the hospital and patient and family will revisit hospice if necessary.
Do not suspect encephalopathy
Patient mental status at baseline
Anemia, thrombocytopenia -likely due to bone marrow suppression from chemotherapy.
Holding Eliquis
If thrombocytopenia continues to improve then will restart Eliquis; restart 09/15 if plts continues to improve
Recent stroke -started on Eliquis after the stroke. Which is now on hold
SIADH -sodium 129. Fluid restriction ordered. Sodium chloride tablets 3 times daily.
Chronic pain syndrome/chronic opiate dependence -due to cancer associated pain. Continue morphine.
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
R buttock with cluster of semi ipen blisters, suspect stage 2 PI
Essential hypertension -hold antihypertensives for hypotension.
Mild intermittent asthma -stable.
Chronic bronchiectasis
Anxiety/depression
BiV ICD -history of sick sinus syndrome.
Restless leg syndrome
GERD
Hyperlipidemia
Obesity due to excess calories
full code
Per my conversation with Dr. Milner (oncologist at [facility]); patient prognosis is months if dont get therapy and likely 2-3 years if gets therapy. Patient worked with physical therapy yesterday and felt that she might improve so she wants to hold
off on hospice at this time. Will see how patient does in the hospital and patient and family will revisit hospice if necessary.
I spent a total of 53 minutes with the patient or on the floor. More than 50% of this time involved counseling and coordination of care.
Anticipated Discharge: > 48 hours
Subjective/Interval History
-
Date of Service: September 15, 2023
denies pain
Objective Data
-
Labs:
Laboratory Results
09/15/23
04:04
WBC 4.0 L
Hgb 8.9 L
Hct 27.8 L
Plt Count 68 L D
Sodium 129 L
Potassium 3.9
Chloride 104
Carbon Dioxide 23
BUN 10
Creatinine 0.6
Glucose 91
Calcium 8.2 L
Vital Signs:
Vital Signs
Temp Pulse Resp BP Pulse Ox
98 F 92 16 94/49 96
09/15/23 11:10 09/15/23 10:00 09/15/23 10:00 09/15/23 10:00 09/15/23 07:51
I&O
09/14/23 09/15/23 09/16/23
06:59 06:59 06:59
Intake Total 100 / 100 1040 / 1040
Output Total 1100 / 1100 900 / 900
Balance -1000 / -1000 140 / 140
--- NOTE | 2023-09-15 18:16 | PTCARENOTE ---
Patient into chair approx 1500 with PT, assist x2 with using bed to help lift patient up. Pt reported she wanted to try and stand to get back to bed, however, upon preparation for this, patient then changed her mind and did not think she would be
able to. Chair sling and jesus lift used to get patient back to bed. Chair sling put minimal pressure on patient's R arm and did not cause increase of pain during transfer. Pt reported she was very tired after sitting in the chair for 3 hours.
[2023-09-15] MEDS: DULCOLAX 10 MG PO (20:19)
[2023-09-15] MEDS: SENOKOT 17.1999999999999993 MG PO (20:20)
[2023-09-16] VITALS (21 sets, daily range): BP systolic 89–130; BP diastolic 46–69; BMI 37.4
[2023-09-16] MEDS: ZOSYN 50 IV ×4 (02:03→20:13)
[2023-09-16 05:08] LABS: % Basophils 0.3 % (0-2); % Eosinophils 1.8 % (0-6); % Immature Granulocytes 0.3 % (0-0.5); % Lymphocytes 14.9 % (20.5-51.1); % Monocytes 7.6 % (1.7-9.3); % Neutrophils 75.1 % (42.2-75.2); Absolute Eosinophils 0.1 10^3/uL (0-0.7); Absolute Lymphocytes 0.5 10^3/uL (1.2-3.4); Absolute Monocytes 0.3 10^3/uL (0.1-0.6); Absolute Neutrophils 2.6 10^3/uL (1.4-6.5); Hematocrit 27.1 % (37.0-47.0); Hemoglobin 8.6 g/dL (12.0-16.0); Mean Corp Hgb Conc. 31.7 g/dL (33.0-37.0); Mean Corpuscular Hgb 28.9 pg (27.0-31.0); Mean Corpuscular Volume 90.9 fL (81.0-99.0); Mean Platelet Volume 10.1 fL (7.4-10.4); Nucleated Red Blood Cells % 0 %; Platelet Count 67 10^3/uL (130-400); Red Blood Cell Count 2.98 10^6/uL (4.20-5.40); White Blood Cell Count 3.4 10^3/uL (4.8-10.8)
[2023-09-16 05:29] LABS: Blood Urea Nitrogen 11 mg/dl (7-17); Carbon Dioxide 25 mmol/L (22-30); Chloride 104 mmol/L (98-107); Estimated Creatinine Clearance 105 ml/min; Glucose 83 mg/dl (70-99); Potassium 3.9 mmol/L (3.5-5.1); Sodium 129 mmol/L (135-145); eGFR > 60.00
[2023-09-16] MEDS: MS CONTIN (EXTENDED RELEASE) 30 MG PO ×3 (06:10→21:09)
[2023-09-16] MEDS: MS CONTIN (EXTENDED RELEASE) 15 MG PO ×2 (06:10→14:00)
--- NOTE | 2023-09-16 06:35 | PTCARENOTE ---
Cared for pt overnight. RUE +4 edema, pulse present with doppler. Noticed LUE has +2 edema, unsure why, 1 iv in arm, nothing running through it. LUE elevated overnight & welling went down. Acewrap applied & CDI on RUE. Purewick. AV paced. PRN pain
meds. Will monitor. NO issues overnight, pt slept well.
[2023-09-16] MEDS: DILAUDID 4 MG PO ×4 (07:46→20:13)
[2023-09-16] MEDS: SPIRIVA RESPIMAT 2.5 MCG 2 PUFF INH (08:20)
--- NOTE | 2023-09-16 09:10 | PTCARENOTE ---
Patient received from night auditor. Patient resting comfortably in bed. AAO, VSS. No events noted overnight. Some complaints of pain in the right arm, see MAR. Currently on Room Air. Right arm remains at +4 edema, red and bruise. Port
accessed. KEON wrap during the day and arm supported. Left arm with noted edema, elevated. Continuing ABX and pain control. Call tsai in reach.
[2023-09-16 09:20] LABS: Iron 42 ug/dl (37-170)
[2023-09-16] MEDS: CLARITIN 10 MG PO (09:23)
[2023-09-16] MEDS: COREG 3.125 MG PO ×2 (09:24→20:12)
[2023-09-16] MEDS: MIRALAX 17 GRAMS PO (09:25)
[2023-09-16] MEDS: NEURONTIN 300 MG PO ×3 (09:26→21:10)
[2023-09-16] MEDS: MUCINEX 600 MG PO ×2 (09:26→20:12)
[2023-09-16] MEDS: PROTONIX 40 MG PO (09:27)
[2023-09-16] MEDS: SODIUM CHLORIDE 1 GRAM PO ×3 (09:27→21:10)
[2023-09-16] MEDS: TYLENOL 1000 MG PO ×3 (09:27→21:09)
[2023-09-16] MEDS: THERAGRAN 1 TABLET PO (09:27)
[2023-09-16 09:29] LABS: Percent Saturation 22 % (20-50); Total Iron Binding Capacity 190 ug/dl (265-497)
[2023-09-16] MEDS: ZETIA 10 MG PO (09:29)
--- NOTE | 2023-09-16 11:19 | WOUNDNOTE ---
WOC RN NOTE: Visited patient to follow up on wounds. Patient last seen by WOC RN on 09/12. Patient declined to have right arm moved or to be turned, as she stated she is finally comfortable after pain medication. Patient reports good relief of pain
of right arm wound with the use of Hydrogel. Patient expressed that she has decided to pursue hospice care and plans to talk to her family this morning. RN Colten made aware of hospice conversation.
--- NOTE | 2023-09-16 12:31 | W.PN.HOSP.TC ---
Today's Communication/Plan
-
Monitor vital signs and see plan
Today patient made it very clear that she wants hospice. I discussed that with patient daughter who will come to the hospital and will discuss personally with the patient. Once patient and family is ready then we will get case consultant involved for
hospice placement.
cw abx for now
pain control
Assessment / Plan
Assessment / Plan
Gen-AAOx3, NAD, obese
HEENT-NC, AT, anicteric, clear oral mm
Neck-supple
CV-reg, no M, +S1/S2
Lungs-clear B/L
Abd-soft, NT, ND
Ext-severe right upper extremity and right chest lymphedema with bruising diffusely, skin breakdown, skin blistering
Musculoskeletal-no cyanosis, clubbing
Skin-warm and dry
Neuro-grossly non-focal
Psych-calm, cooperative
Severe sepsis -suspect due to right upper extremity skin and soft tissue infection, severe lymphedema. Hemodynamically stable. blood cultures NGTD. Continue broad-spectrum antibiotics. Hold antihypertensives.
Severe right upper extremity lymphedema/wounds -elevate right upper extremity. Consult wound care. Etiology is due to metastatic breast cancer. She does wear a lymphedema sleeve which seems to help when on.
Metastatic breast cancer -originally diagnosed 13 years ago, treated with lumpectomy radiation and chemotherapy. Cancer recurred about 5 years ago. Last chemotherapy was 2 to 3 weeks ago. Now getting palliative radiation therapy at [facility]. per
patient she was unable to get palliative radiation. She follows up with Dr Eula Milner at [facility]
Does have significant right upper extremity swelling and bruising. CT scan with soft tissue swelling. No abscess
procal +; on abx for cellulitis
Per my conversation with Dr. Milner (oncologist at [facility]); patient prognosis is months if dont get therapy and likely 2-3 years if gets therapy. Patient worked with physical therapy yesterday and felt that she might improve so she wants to hold
off on hospice at this time. Will see how patient does in the hospital and patient and family will revisit hospice if necessary.
09/15 patient made it very clear that she wants hospice. I discussed that with patient daughter who will come to the hospital and will discuss personally with the patient. Once patient and family is ready then we will get case consultant involved for
hospice placement.
Do not suspect encephalopathy
Patient mental status at baseline
Anemia, thrombocytopenia -likely due to bone marrow suppression from chemotherapy.
Holding Eliquis
If thrombocytopenia continues to improve then will restart Eliquis; restart if plts continues to improve
Recent stroke -started on Eliquis after the stroke. Which is now on hold
SIADH -sodium 129. Fluid restriction ordered. Sodium chloride tablets 3 times daily.
Chronic pain syndrome/chronic opiate dependence -due to cancer associated pain. Continue morphine.
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
R buttock with cluster of semi ipen blisters, suspect stage 2 PI
Essential hypertension -hold antihypertensives for hypotension.
Mild intermittent asthma -stable.
Chronic bronchiectasis
Anxiety/depression
BiV ICD -history of sick sinus syndrome.
Restless leg syndrome
GERD
Hyperlipidemia
Obesity due to excess calories
full code
Per my conversation with Dr. Milner (oncologist at [facility]); patient prognosis is months if dont get therapy and likely 2-3 years if gets therapy. Patient worked with physical therapy yesterday and felt that she might improve so she wants to hold
off on hospice at this time. Will see how patient does in the hospital and patient and family will revisit hospice if necessary.
09/15 patient made it very clear that she wants hospice. I discussed that with patient daughter who will come to the hospital and will discuss personally with the patient. Once patient and family is ready then we will get case consultant involved for
hospice placement.
I spent a total of 52 minutes with the patient or on the floor. More than 50% of this time involved counseling and coordination of care.
Anticipated Discharge: Within 24 hours
Subjective/Interval History
-
Date of Service: September 16, 2023
has pain
Objective Data
-
Labs:
Laboratory Results
09/16/23
04:20
WBC 3.4 L
Hgb 8.6 L
Hct 27.1 L
Plt Count 67 L
Sodium 129 L
Potassium 3.9
Chloride 104
Carbon Dioxide 25
BUN 11
Creatinine 0.6
Glucose 83
Calcium 8.0 L
Vital Signs:
Vital Signs
Temp Pulse Resp BP Pulse Ox
97.9 F 101 18 98/55 94
09/16/23 11:10 09/16/23 11:10 09/16/23 11:10 09/16/23 11:10 09/16/23 12:03
I&O
09/15/23 09/16/23 09/17/23
06:59 06:59 06:59
Intake Total 1040 / 1040 1160 / 1160
Output Total 900 / 900 650 / 650
Balance 140 / 140 510 / 510
--- NOTE | 2023-09-16 13:07 | PN.CDI ---
CDI
- -
CDI:
Physician Documentation Request
Admit Date: 09/11/23 22:40
Dear Doctor Carlos,
09/10 H&P states sepsis
09/11 and 09/12 progress notes state septic shock
09/13 to 09/15 progress notes state severe sepsis .
It does not appear that patient was on pressors. Pt did receive 500 bolus on 09/10 x 2
Please clarify the following:
____ - Septic shock was present on admission and is now resolved.
____ - Septic shock was ruled out - severe sepsis only
____ - Other
Use of terms such as suspected, likely, concern for, or probable (associated with a specific diagnosis that is being evaluated, monitored, or treated as if it exists) are acceptable and can be coded in the inpatient setting, when documented at the
time of discharge.
Thank you,
Payton Olivia RN, BSN
CDI Specialist
[place] text
Please use your independent medical judgment in providing your response.
--- NOTE | 2023-09-16 13:14 | PN.CDI ---
CDI
- -
CDI:
Physician Documentation Request
Admit Date: 09/11/23 22:40
Dear Doctor Carlos,
Patient admitted with sepsis.
Progress notes states Anemia, thrombocytopenia - likely due to bone marrow suppression from chemotherapy.
Labs as follows:
Laboratory Tests
09/13/23 09/15/23 09/16/23
06:08 04:04 04:20
WBC 4.7 L 4.0 L 3.4 L
RBC 3.12 L 3.08 L 2.98 L
Plt Count 42 L 68 L D 67 L
Could you please provide a diagnosis that supports the above lab abnormalities and additional evaluation/ monitoring:
Pancytopenia
Anemia and thrombocytopenia only
Other
Use of terms such as suspected, likely, concern for, or probable (associated with a specific diagnosis that is being evaluated, monitored, or treated as if it exists) are acceptable and can be coded in the inpatient setting, when documented at the
time of discharge.
Thank you,
Payton Olivia RN, BSN
CDI Specialist
[place] text
Please use your independent medical judgment in providing your response.
[2023-09-16] MEDS: REQUIP 2 MG PO ×2 (14:00→20:12)
--- NOTE | 2023-09-16 14:30 | CM ---
Addendum entered by Litzy Snyder RN 09/16/23 17:57:
Spoke with Dougie Hanson [facility] SN[facility]; they can accept the patient.
Received phone call from Apple, Student Activities Director, [facility] (ph [phone], fax [phone]); she is considering accepting this patient and requests clinical information- sent via Active Fax. She is aware patient has
chosen hospice.
Spoke with josias Gray; informed her that [facility] is the only accepting SNF at this time. Daughter said family is wanting to tour 4 SNFs before making final SNF/Assisted Living choices and feel they should be allowed until next week to
decide. They are also interested in [facility]. Daughter thinks [facility] will accept her mother with hospice and that they will also be doing PT 3x/week. Daughter has no additional SNF choices at this time. Daughter stating she
feels overwhelmed and pressured to make decisions about SNF.
Plan follow up with [facility] tomorrow for acceptance.
Addendum entered by Litzy Snyder RN 09/16/23 14:58:
Spoke with [facility]; they have no available beds now or next week.
Original Note:
Patient from [facility] at [facility] with Hx Metastatic breast cancer with Dx Septic shock -suspect due to right upper extremity skin and soft tissue infection, severe lymphedema. Room air. Receiving IV Dilaudid prn, MS Contin, IV Abx.
Seen by [facility] nurse - daily wound care to right axilla crease/chest. PT; requires assist of 2, recommend SNF vs home w/ 24 hr care. OT recommends skilled rehab.
Received call from daughter Marina, she said her sister Yadira talked to the patient by phone and patient confirms she wants hospice. [facility] caregiver agency told the family that the patient needed too much care for 1 caregiver to handle at
home, so patient/family now wants SNF with hospice. Discussed SNF preferences; daughter agrees to [facility], [facility] & [facility]. She is hoping patient can have a private room at SNF. Daughter says that
the patient's finance person has completed the LTC application for [facility] but did not submit it- encouraged her to have the financial application submitted so patient can be considered.
SNF referrals placed.
Spoke with [facility]ie [facility]; their first available bed is 09/20, and room is semi-private.
Spoke with Dougie Martinez; the family has not submitted the LTC claudy, and it cannot be reviewed on Wednesday, so next possible day to determine acceptance is 09/19.
Phone call to [facility]; left message requesting review/response to referral.
Spoke with Dougie Hanson; she will review the referral and consider the patient. They have a semi-private room.
[facility]; patient/family interested in SNF with hospice.
Plan follow up SNF referrals.
Plan SNF with hospice once accepting facility found.
--- NOTE | 2023-09-16 15:31 | HOSPNOTE ---
Spoke with patient about hospice and explained the philosophy. The patient requested hospice meeting for explanation. The patient understands that home she would need a caregiver 24 hours a day. Referrals will be sent to SNF for placement with
hospice care. Case management aware of referrals sent. Will continue to follow.
[2023-09-16 17:47] LABS: Folate > 20.0 ng/ml (2.76-20); Vitamin B12 > 1000 pg/ml (239-931)
[2023-09-16] MEDS: DULCOLAX 10 MG PO (21:10)
[2023-09-16] MEDS: SENOKOT 17.1999999999999993 MG PO (21:10)
[2023-09-17] VITALS (11 sets, daily range): BP systolic 99–146; BP diastolic 50–68; BMI 37.5
[2023-09-17] MEDS: ZOSYN 50 IV ×4 (02:32→19:41)
--- NOTE | 2023-09-17 03:04 | PTCARENOTE ---
assumed care of patient, able to make needs known. medication with pain meds per request. pt refuses to be turned at times and other times is okay with moving. right arm wrapped in mejia wrap, elevated on pillow. left arm elevated as well. PW intact,
draining james urine. care ongoing.
[2023-09-17] MEDS: DILAUDID 4 MG PO ×5 (03:25→20:30)
[2023-09-17 03:36] LABS: % Basophils 0.3 % (0-2); % Eosinophils 1.6 % (0-6); % Immature Granulocytes 0.3 % (0-0.5); % Lymphocytes 12.7 % (20.5-51.1); % Neutrophils 78.1 % (42.2-75.2); Absolute Eosinophils 0.1 10^3/uL (0-0.7); Absolute Lymphocytes 0.5 10^3/uL (1.2-3.4); Absolute Monocytes 0.3 10^3/uL (0.1-0.6); Hematocrit 27.2 % (37.0-47.0); Hemoglobin 8.7 g/dL (12.0-16.0); Mean Corpuscular Hgb 28.8 pg (27.0-31.0); Mean Corpuscular Volume 90.1 fL (81.0-99.0); Mean Platelet Volume 9.6 fL (7.4-10.4); Nucleated Red Blood Cells % 0 %; Platelet Count 79 10^3/uL (130-400); Red Blood Cell Count 3.02 10^6/uL (4.20-5.40); White Blood Cell Count 3.9 10^3/uL (4.8-10.8)
[2023-09-17 04:05] LABS: Blood Urea Nitrogen 10 mg/dl (7-17); Calcium 7.9 mg/dl (8.4-10.2); Carbon Dioxide 25 mmol/L (22-30); Chloride 104 mmol/L (98-107); Estimated Creatinine Clearance 106 ml/min; Glucose 87 mg/dl (70-99); Potassium 3.9 mmol/L (3.5-5.1); Sodium 130 mmol/L (135-145); eGFR > 60.00
[2023-09-17] MEDS: MS CONTIN (EXTENDED RELEASE) 15 MG PO ×2 (05:31→14:16)
[2023-09-17] MEDS: MS CONTIN (EXTENDED RELEASE) 30 MG PO ×3 (05:31→22:00)
[2023-09-17] MEDS: SPIRIVA RESPIMAT 2.5 MCG 2 PUFF INH (08:23)
[2023-09-17] MEDS: MUCINEX 600 MG PO ×2 (08:45→19:41)
[2023-09-17] MEDS: THERAGRAN 1 TABLET PO (08:45)
[2023-09-17] MEDS: ZETIA 10 MG PO (08:45)
[2023-09-17] MEDS: SODIUM CHLORIDE 1 GRAM PO ×3 (08:45→22:00)
[2023-09-17] MEDS: PROTONIX 40 MG PO (08:45)
[2023-09-17] MEDS: COREG 3.125 MG PO ×2 (08:45→19:41)
[2023-09-17] MEDS: NEURONTIN 300 MG PO ×3 (08:45→22:00)
[2023-09-17] MEDS: TYLENOL 1000 MG PO ×3 (08:45→22:00)
[2023-09-17] MEDS: CLARITIN 10 MG PO (08:46)
[2023-09-17] MEDS: MIRALAX 17 GRAMS PO (08:46)
[2023-09-17] MEDS: REQUIP 2 MG PO ×2 (12:03→19:41)
--- NOTE | 2023-09-17 12:10 | PTOTSP ---
Reviewed chart, s/w RN and s/w pt who reports she is going on hospice and therapy is too painful. Pt agreed to PT signing off.
--- NOTE | 2023-09-17 12:34 | CM ---
Addendum entered by Mirna Solitario RN 09/17/23 16:03:
Received call from daughter Yadira and [facility]. Pt wants to change to [facility] [phone]. [facility] notified. Referral placed with [facility] hosp[facility] via care port.
Instructed [facility] to call complex case manager in am when DME equipment to be delivered tomorrow.
Ambulance needs to be set up with DNR OOH form signed by MD. aware of plan.
PLAN Home with [facility] and private palliative care specialist
Original Note:
Spoke with [facility] [phone] her and her sister have agreed they want pt to return to [employer] apartment .
Family still looking for palliative care specialist agency to care for mom.Offered lamp tester and inspector list suggestion.
[facility] has been consulted and in communication with pt and family.
Pt will need ambulance and DNROOH signed by at ok.
PLAN Home to assisted living [facility] with Hospice and private palliative care specialist
--- NOTE | 2023-09-17 13:21 | W.PN.HOSP.TC ---
Today's Communication/Plan
-
Monitor vital signs and see plan
Pain control
cw abx for now
DNR
plan for possible home now on hospice; family deciding
Assessment / Plan
Assessment / Plan
Gen-AAOx3, NAD, obese
HEENT-NC, AT, anicteric, clear oral mm
Neck-supple
CV-reg, no M, +S1/S2
Lungs-clear B/L
Abd-soft, NT, ND
Ext-severe right upper extremity and right chest lymphedema with bruising diffusely, skin breakdown, skin blistering
Musculoskeletal-no cyanosis, clubbing
Skin-warm and dry
Neuro-grossly non-focal
Psych-calm, cooperative
Severe sepsis -suspect due to right upper extremity skin and soft tissue infection, severe lymphedema. Hemodynamically stable. blood cultures NGTD. Continue broad-spectrum antibiotics. Hold antihypertensives.
there was no septic shock on admission
Severe right upper extremity lymphedema/wounds -elevate right upper extremity. wound care following. Etiology is due to metastatic breast cancer. She does wear a lymphedema sleeve which seems to help when on.
Metastatic breast cancer -originally diagnosed 13 years ago, treated with lumpectomy radiation and chemotherapy. Cancer recurred about 5 years ago. Last chemotherapy was 2 to 3 weeks ago. Now getting palliative radiation therapy at [facility]. per
patient she was unable to get palliative radiation. She follows up with Dr Eula Milner at [facility]
Does have significant right upper extremity swelling and bruising. CT scan with soft tissue swelling. No abscess
procal +; on abx for cellulitis
Per my conversation with Dr. Milner (oncologist at [facility]); patient prognosis is months if dont get therapy and likely 2-3 years if gets therapy. Patient worked with physical therapy yesterday and felt that she might improve so she wants to hold
off on hospice at this time. Will see how patient does in the hospital and patient and family will revisit hospice if necessary.
09/15 patient made it very clear that she wants hospice. I discussed that with patient daughter who will come to the hospital and will discuss personally with the patient. Once patient and family is ready then we will get case advocate involved for
hospice placement.
Do not suspect encephalopathy
Patient mental status at baseline
pancytopenia -likely due to bone marrow suppression from chemotherapy.
Holding Eliquis; discussed at length with patient and she is now pursuing hospice and she would not want eliquis
Recent stroke -started on Eliquis after the stroke. Which is now on hold
SIADH -sodium 130. Sodium chloride tablets 3 times daily.
Chronic pain syndrome/chronic opiate dependence -due to cancer associated pain. Continue morphine.
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
R buttock with cluster of semi ipen blisters, suspect stage 2 PI
Essential hypertension -hold antihypertensives for hypotension.
Mild intermittent asthma -stable.
Chronic bronchiectasis
Anxiety/depression
BiV ICD -history of sick sinus syndrome.
Restless leg syndrome
GERD
Hyperlipidemia
Obesity due to excess calories
DNR; per patient on 09/16
Per my conversation with Dr. Milner (oncologist at [facility]); patient prognosis is months if dont get therapy and likely 2-3 years if gets therapy. Patient worked with physical therapy yesterday and felt that she might improve so she wants to hold
off on hospice at this time. Will see how patient does in the hospital and patient and family will revisit hospice if necessary.
09/15 patient made it very clear that she wants hospice. This patient and family in agreement. Now awaiting placement for hospice
I spent a total of 53 minutes with the patient or on the floor. More than 50% of this time involved counseling and coordination of care.
Anticipated Discharge: Within 24 hours
Subjective/Interval History
-
Date of Service: September 17, 2023
denies nausea
Objective Data
-
Labs:
Laboratory Results
09/17/23
03:29
WBC 3.9 L
Hgb 8.7 L
Hct 27.2 L
Plt Count 79 L
Sodium 130 L
Potassium 3.9
Chloride 104
Carbon Dioxide 25
BUN 10
Creatinine 0.6
Glucose 87
Calcium 7.9 L
Vital Signs:
Vital Signs
Temp Pulse Resp BP Pulse Ox
97.9 F 97 18 139/68 94
09/17/23 11:15 09/17/23 08:25 09/17/23 08:25 09/17/23 08:00 09/17/23 08:01
I&O
09/16/23 09/17/23 09/18/23
06:59 06:59 06:59
Intake Total 1160 / 1160 700 / 700
Output Total 650 / 650 400 / 400
Balance 510 / 510 300 / 300
[2023-09-17 15:01] LABS: Transferrin 137 mg/dL (200-360)
--- NOTE | 2023-09-17 18:13 | PTCARENOTE ---
Pt resting throughout the day. Aox3 and pleasant. Refusing some turns d/t pain. Purewick draining yellow urine. Medicated with PRN Dilaudid for pain with good effect. Sleeping intermittently. Able to make needs known, call tsai within reach.
[2023-09-17] MEDS: DULCOLAX 10 MG PO (22:00)
[2023-09-17] MEDS: SENOKOT 17.1999999999999993 MG PO (22:00)
[2023-09-18] VITALS (9 sets, daily range): BP systolic 95–130; BP diastolic 49–60
[2023-09-18] MEDS: ZOSYN 50 IV ×2 (01:58→07:58)
[2023-09-18] MEDS: DILAUDID 4 MG PO ×5 (03:19→18:30)
[2023-09-18 04:07] LABS: % Basophils 0.3 % (0-2); % Eosinophils 1.9 % (0-6); % Immature Granulocytes 0.6 % (0-0.5); % Lymphocytes 17.2 % (20.5-51.1); % Monocytes 11.5 % (1.7-9.3); % Neutrophils 68.5 % (42.2-75.2); Absolute Eosinophils 0.1 10^3/uL (0-0.7); Absolute Lymphocytes 0.5 10^3/uL (1.2-3.4); Absolute Monocytes 0.4 10^3/uL (0.1-0.6); Absolute Neutrophils 2.2 10^3/uL (1.4-6.5); Hematocrit 27.5 % (37.0-47.0); Hemoglobin 8.5 g/dL (12.0-16.0); Mean Corp Hgb Conc. 30.9 g/dL (33.0-37.0); Mean Corpuscular Hgb 28.1 pg (27.0-31.0); Mean Corpuscular Volume 91.1 fL (81.0-99.0); Mean Platelet Volume 9.8 fL (7.4-10.4); Nucleated Red Blood Cells % 0.6 %; Platelet Count 106 10^3/uL (130-400); Red Blood Cell Count 3.02 10^6/uL (4.20-5.40); Red Cell Dist. Width 21.2 % (11.5-14.5); White Blood Cell Count 3.1 10^3/uL (4.8-10.8)
[2023-09-18 04:30] LABS: Blood Urea Nitrogen 8 mg/dl (7-17); Carbon Dioxide 26 mmol/L (22-30); Chloride 103 mmol/L (98-107); Estimated Creatinine Clearance 106 ml/min; Glucose 94 mg/dl (70-99); Sodium 129 mmol/L (135-145); eGFR > 60.00
[2023-09-18] MEDS: MS CONTIN (EXTENDED RELEASE) 15 MG PO ×2 (04:57→13:18)
[2023-09-18] MEDS: MS CONTIN (EXTENDED RELEASE) 30 MG PO ×3 (04:57→20:45)
--- NOTE | 2023-09-18 05:12 | PTCARENOTE ---
No acute events overnight. Patient with severe amount of pain in RUE -prn dilaudid administered with relief. Plan to d/c home to hospice when equipment is delivered.
[2023-09-18] MEDS: SPIRIVA RESPIMAT 2.5 MCG 2 PUFF INH (07:52)
[2023-09-18] MEDS: NEURONTIN 300 MG PO ×3 (07:59→20:44)
[2023-09-18] MEDS: CLARITIN 10 MG PO (07:59)
[2023-09-18] MEDS: TYLENOL 1000 MG PO ×3 (07:59→20:44)
[2023-09-18] MEDS: ZETIA 10 MG PO (08:04)
[2023-09-18] MEDS: SODIUM CHLORIDE 1 GRAM PO ×3 (08:04→20:44)
[2023-09-18] MEDS: MUCINEX 600 MG PO ×2 (08:06→20:44)
[2023-09-18] MEDS: PROTONIX 40 MG PO (08:06)
[2023-09-18] MEDS: COREG 3.125 MG PO ×2 (08:07→20:44)
[2023-09-18] MEDS: MIRALAX PO (08:07)
[2023-09-18] MEDS: THERAGRAN 1 TABLET PO (08:07)
[2023-09-18] MEDS: REQUIP 2 MG PO ×2 (12:30→20:45)
--- NOTE | 2023-09-18 12:59 | W.PN.HOSP.TC ---
Today's Communication/Plan
-
Monitor vital signs and see plan
Spoke with family, still awaiting bed. Possible DC tomorrow on hospice since still awaiting arrangements
Added fentanyl patch
Assessment / Plan
Assessment / Plan
Gen-AAOx3, NAD, obese
HEENT-NC, AT, anicteric, clear oral mm
Neck-supple
CV-reg, no M, +S1/S2
Lungs-clear B/L
Abd-soft, NT, ND
Ext-severe right upper extremity and right chest lymphedema with bruising diffusely, skin breakdown, skin blistering
Musculoskeletal-no cyanosis, clubbing
Skin-warm and dry
Neuro-grossly non-focal
Psych-calm, cooperative
Severe sepsis -suspect due to right upper extremity skin and soft tissue infection, severe lymphedema. Hemodynamically stable. blood cultures NGTD. Continue broad-spectrum antibiotics. Hold antihypertensives.
there was no septic shock on admission
Severe right upper extremity lymphedema/wounds -elevate right upper extremity. wound care following. Etiology is due to metastatic breast cancer. She does wear a lymphedema sleeve which seems to help when on.
Metastatic breast cancer -originally diagnosed 13 years ago, treated with lumpectomy radiation and chemotherapy. Cancer recurred about 5 years ago. Last chemotherapy was 2 to 3 weeks ago. Now getting palliative radiation therapy at [facility]. per
patient she was unable to get palliative radiation. She follows up with Dr Eula Milner at [facility]
Does have significant right upper extremity swelling and bruising. CT scan with soft tissue swelling. No abscess
procal +; on abx for cellulitis
Per my conversation with Dr. Milner (oncologist at [facility]); patient prognosis is months if dont get therapy and likely 2-3 years if gets therapy. Patient worked with physical therapy yesterday and felt that she might improve so she wants to hold
off on hospice at this time. Will see how patient does in the hospital and patient and family will revisit hospice if necessary.
09/15 patient made it very clear that she wants hospice. patient and family in agreement. Now awaiting hospice arrangements. Still in pain. Added fentanyl patch
Do not suspect encephalopathy
Patient mental status at baseline
pancytopenia -likely due to bone marrow suppression from chemotherapy.
Holding Eliquis; discussed at length with patient and she is now pursuing hospice and she would not want eliquis
Recent stroke -started on Eliquis after the stroke. Which is now on hold
SIADH -sodium 129. Sodium chloride tablets 3 times daily. does not want fluid restriction as going on hospice which is reasonable
Chronic pain syndrome/chronic opiate dependence -due to cancer associated pain. Continue morphine.
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
R buttock with cluster of semi ipen blisters, suspect stage 2 PI
Essential hypertension -hold antihypertensives for hypotension.
Mild intermittent asthma -stable.
Chronic bronchiectasis
Anxiety/depression
BiV ICD -history of sick sinus syndrome.
Restless leg syndrome
GERD
Hyperlipidemia
Obesity due to excess calories
DNR; per patient on 09/16
Per my conversation with Dr. Milner (oncologist at [facility]); patient prognosis is months if dont get therapy and likely 2-3 years if gets therapy. Patient worked with physical therapy yesterday and felt that she might improve so she wants to hold
off on hospice at this time. Will see how patient does in the hospital and patient and family will revisit hospice if necessary.
09/15 patient made it very clear that she wants hospice. patient and family in agreement. Now awaiting hospice arrangements. spoke with daughter and it appears likely set up for tomorrow
I spent a total of 52 minutes with the patient or on the floor. More than 50% of this time involved counseling and coordination of care.
Anticipated Discharge: Within 24 hours
Subjective/Interval History
-
Date of Service: September 18, 2023
has some pain
Objective Data
-
Labs:
Laboratory Results
09/18/23
03:23
WBC 3.1 L
Hgb 8.5 L
Hct 27.5 L
Plt Count 106 L D
Sodium 129 L
Potassium 4.0
Chloride 103
Carbon Dioxide 26
BUN 8
Creatinine 0.5 L
Glucose 94
Calcium 8.0 L
Vital Signs:
Vital Signs
Temp Pulse Resp BP Pulse Ox
98 F 87 20 114/53 96
09/18/23 11:55 09/18/23 07:57 09/18/23 07:57 09/18/23 06:00 09/18/23 08:56
I&O
09/17/23 09/18/23 09/19/23
06:59 06:59 06:59
Intake Total 700 / 700 340 / 340
Output Total 400 / 400
Balance 300 / 300 340 / 340
[2023-09-18] MEDS: AUGMENTIN 875 MG/125 MG 1 TABLET PO ×2 (13:19→20:45)
[2023-09-18] MEDS: DURAGESIC 25 MCG/HR PATCH 1 PATCH TRANSDERM (13:31)
[2023-09-18] MEDS: DULCOLAX 10 MG PO (20:43)
[2023-09-18] MEDS: SENOKOT 17.1999999999999993 MG PO (20:44)
[2023-09-19] VITALS (9 sets, daily range): BP systolic 101–133; BP diastolic 45–91; BMI 37.9
[2023-09-19] MEDS: DILAUDID 4 MG PO ×5 (01:25→16:34)
[2023-09-19] MEDS: MS CONTIN (EXTENDED RELEASE) 15 MG PO ×2 (05:15→13:59)
[2023-09-19] MEDS: MS CONTIN (EXTENDED RELEASE) 30 MG PO ×2 (05:15→13:59)
--- NOTE | 2023-09-19 06:25 | PTCARENOTE ---
No acute events overnight. PRN dilaudid administered for RUE pain. Plan for hospice today. Patient in good spirits.
[2023-09-19] MEDS: SPIRIVA RESPIMAT 2.5 MCG 2 PUFF INH (07:28)
[2023-09-19] MEDS: MIRALAX 17 GRAMS PO (08:35)
[2023-09-19] MEDS: MUCINEX 600 MG PO (08:37)
[2023-09-19] MEDS: ZETIA 10 MG PO (08:42)
[2023-09-19] MEDS: SODIUM CHLORIDE 1 GRAM PO (08:42)
[2023-09-19] MEDS: PROTONIX 40 MG PO (08:42)
[2023-09-19] MEDS: TYLENOL 1000 MG PO (08:43)
[2023-09-19] MEDS: THERAGRAN 1 TABLET PO (08:44)
[2023-09-19] MEDS: COREG 3.125 MG PO (08:47)
[2023-09-19] MEDS: AUGMENTIN 875 MG/125 MG 1 TABLET PO (08:47)
[2023-09-19] MEDS: NEURONTIN 300 MG PO (08:48)
[2023-09-19] MEDS: CLARITIN PO (08:51)
--- NOTE | 2023-09-19 11:10 | W.PN.HOSP.TC ---
Addendum entered and electronically signed by Heber Gonzalez MD 09/19/23 13:20:
Patient has BiV ICD which needs to be switched off before she goes on hospice. Per daughter device was put in at [facility]. Spoke with Dr. Yusuf from cardiology who will try to turn it off before patient gets discharge.
Addendum entered and electronically signed by Heber Gonzalez MD 09/19/23 11:23:
Per case reviewerdirect marketing manager company will fill out the medications
Daughter updated over the phone
Time of discharge 38 minutes
Original Note:
Today's Communication/Plan
-
Monitor vital signs see plan
Pain control
Discussed disposition planning with case reviewer, awaiting response.
if hospice is all set up per CM then will dc home today
Assessment / Plan
Assessment / Plan
Gen-AAOx3, NAD, obese
HEENT-NC, AT, anicteric, clear oral mm
Neck-supple
CV-reg, no M, +S1/S2
Lungs-clear B/L
Abd-soft, NT, ND
Ext-severe right upper extremity and right chest lymphedema with bruising diffusely, skin breakdown, skin blistering
Musculoskeletal-no cyanosis, clubbing
Skin-warm and dry
Neuro-grossly non-focal
Psych-calm, cooperative
Severe sepsis -suspect due to right upper extremity skin and soft tissue infection, severe lymphedema. Hemodynamically stable. blood cultures NGTD. Continue broad-spectrum antibiotics. Hold antihypertensives.
there was no septic shock on admission
Severe right upper extremity lymphedema/wounds -elevate right upper extremity. wound care following. Etiology is due to metastatic breast cancer. She does wear a lymphedema sleeve which seems to help when on.
Metastatic breast cancer -originally diagnosed 13 years ago, treated with lumpectomy radiation and chemotherapy. Cancer recurred about 5 years ago. Last chemotherapy was 2 to 3 weeks ago. Now getting palliative radiation therapy at [facility]. per
patient she was unable to get palliative radiation. She follows up with Dr Eula Milner at [facility]
Does have significant right upper extremity swelling and bruising. CT scan with soft tissue swelling. No abscess
procal +; on abx for cellulitis
Per my conversation with Dr. Milner (oncologist at [facility]); patient prognosis is months if dont get therapy and likely 2-3 years if gets therapy. Patient worked with physical therapy yesterday and felt that she might improve so she wants to hold
off on hospice at this time. Will see how patient does in the hospital and patient and family will revisit hospice if necessary.
09/15 patient made it very clear that she wants hospice. patient and family in agreement. Now awaiting hospice arrangements. CM aware. Added fentanyl patch
Do not suspect encephalopathy
Patient mental status at baseline
pancytopenia -likely due to bone marrow suppression from chemotherapy.
Holding Eliquis; discussed at length with patient and she is now pursuing hospice and she would not want eliquis
Recent stroke -started on Eliquis after the stroke. Which is now on hold
SIADH -sodium 129. Sodium chloride tablets 3 times daily. does not want fluid restriction as going on hospice which is reasonable
Chronic pain syndrome/chronic opiate dependence -due to cancer associated pain. Continue morphine.
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
R buttock with cluster of semi ipen blisters, suspect stage 2 PI
Essential hypertension -hold antihypertensives for hypotension.
Mild intermittent asthma -stable.
Chronic bronchiectasis
Anxiety/depression
BiV ICD -history of sick sinus syndrome.
Restless leg syndrome
GERD
Hyperlipidemia
Obesity due to excess calories
DNR; per patient on 09/16
Per my conversation with Dr. Milner (oncologist at [facility]); patient prognosis is months if dont get therapy and likely 2-3 years if gets therapy. Patient worked with physical therapy yesterday and felt that she might improve so she wants to hold
off on hospice at this time. Will see how patient does in the hospital and patient and family will revisit hospice if necessary.
09/15 patient made it very clear that she wants hospice. patient and family in agreement. Now awaiting hospice arrangements.
Anticipated Discharge: Today
Subjective/Interval History
-
Date of Service: September 19, 2023
has some pain
Objective Data
-
Vital Signs:
Vital Signs
Temp Pulse Resp BP Pulse Ox
97.7 F 97 19 129/55 96
09/19/23 07:20 09/19/23 07:31 09/19/23 07:31 09/19/23 06:00 09/19/23 07:31
I&O
09/18/23 09/19/23 09/20/23
06:59 06:59 06:59
Intake Total 340 / 340 480 / 480
Output Total 1300 / 1300
Balance 340 / 340 -820 / -820
--- NOTE | 2023-09-19 11:23 | W.DCSUMMARY ---
Discharge Summary
Discharge Data
Date of Admission: 09/11/23
Date of Discharge: 09/19/23
-
Pending Results: No
Hospital Course
73-year-old female with past medical history of breast cancer with lymphedema, recent stroke, chronic pain syndrome with opioid dependence, cardiomyopathy, essential hypertension, asthma, bronchiectasis, anxiety, depression, biventricular ICD,
restless leg syndrome, GERD, hyperlipidemia, obesity came to the hospital with severe sepsis secondary to right upper extremity cellulitis with underlying severe lymphedema. Patient has been dealing with breast cancer and lymphedema. She had
severe pain throughout hospitalization and required aggressive pain management. Patient outpatient oncologist was also involved who wanted to try if patient can get better for further radiation. Patient pain continued to get worse and she tried
multiple sessions of physical therapy and she was unable to ambulate. Given these findings patient did not wanted to pursue this quality of life and choose hospice. Patient also had pancytopenia throughout hospitalization for which her Eliquis was
held. Given her hospice status Eliquis was discontinued. Once patient hospice was set up she was then discharged on hospice.
Discharge Plan
-
Patient Disposition: Home with Hospice
Discharge Diagnosis/Procedures: severe sepsis secondary to right upper extremity cellulitis with severe lymphedema
Breast cancer
Pancytopenia
Uncontrolled pain with chronic pain syndrome with opioid dependence
Diet: As tolerated
Activity: As tolerated
Driving Restrictions: Not until seen by your Dr
Bathing Restrictions: None
Activity Restrictions/Additional Instructions:
Wound Care Instructions
R axilla crease/chest: clean with warm water, hydrogel to open sores followed by thin layer of soft non woven gauze change daily.
R buttock: clean with soap and water, silicone foam change q 3 days and prn soilage.
R arm elevation, mejia wrap or lymphedema sleeve as tolerated daily, remove at bedtime.
Follow up with oncologist
Please follow-up with your hospice physician
Referrals:
Sasha Cabrera MD [Family Provider] - in less than 1 week
Prescriptions:
New
acetaminophen [Tylenol Extra Strength] 500 mg Tablet
1,000 mg PO TID Qty: 0 0RF
fentanyl 25 mcg/hr Patch 72 Hour
1 patch transdermal Q72H Qty: 5 0RF
amoxicillin-pot clavulanate 875-125 mg Tablet
1 tab PO Q12 Qty: 8 0RF
hydromorphone 4 mg Tablet
4 mg PO Q3HPRN PRN (Reason: Severe pain) Qty: 10 0RF
polyethylene glycol 3350 [HealthyLax] 17 gram Powder In Packet
17 g PO DAILY Qty: 0 0RF
Continued
sennosides [senna] 8.6 mg Tablet
17.2 mg PO HS
albuterol sulfate 2.5 mg /3 mL (0.083 %) Solution For Nebulization
2.5 mg INHALATION Q6H PRN (Reason: SOB)
acetaminophen 500 mg Tablet
1,000 mg PO TID PRN (Reason: pain)
ropinirole 2 mg Tablet
2 mg PO . 1 PM
ropinirole 2 mg Tablet
2 mg PO . 8 PM
morphine 15 mg Tablet Extended Release
15 mg PO . 6 AM
Rx Instructions:
with 30mg tablet
bisacodyl 5 mg Tablet
10 mg PO HS
tiotropium bromide 2.5 mcg/actuation Mist
2 puff INHALATION DAILY
clonazepam 0.5 mg Tablet
0.5 mg PO BID PRN (Reason: anxiety) Qty: 6 0RF
morphine 30 mg Tablet Extended Release
30 mg PO Q8H Qty: 10 0RF
hydromorphone 2 mg Tablet
3 mg PO Q3HPRN PRN (Reason: breakthrough pain) Qty: 10 0RF
morphine 15 mg Tablet Extended Release
15 mg PO . 2 PM Qty: 10 0RF
Rx Instructions:
with 30mg tablet
gabapentin 100 mg Capsule
300 mg PO TID Qty: 30 0RF
Discontinued
omeprazole 20 mg Tablet,Delayed Release (Dr/Ec)
20 mg PO DAILY
multivitamin Tablet
1 tab PO DAILY
carvedilol 3.125 mg Tablet
3.125 mg PO BID
benzonatate 100 mg Capsule
100 mg PO TID PRN (Reason: cough)
losartan 25 mg Tablet
25 mg PO DAILY
loratadine [Claritin] 10 mg Tablet
10 mg PO DAILY
ezetimibe [Zetia] 10 mg Tablet
10 mg PO DAILY
sodium chloride 1,000 mg Tablet,Soluble
1,000 mg PO TID
Eliquis 5 mg Tablet
5 mg PO BID
guaifenesin [Mucinex] 600 mg Tablet Extended Release 12hr
600 mg PO Q12H
Discharge Orders:
Discharge Patient (As Directed); Ordered 09/19/23
Ordered By: Heber Gonzalez
Discharge Date and Time
Discharge Date/Time: 09/19/23 17:25
Print Language: DANISH
[2023-09-19] MEDS: REQUIP 2 MG PO (12:37)
--- NOTE | 2023-09-19 13:39 | CM ---
non destructive evaluation manager reviewed patient's chart and spoke with Nevin at [facility] [phone], . non destructive evaluation manager faxed over medication list. Patient is for discharge to home today at 5pm, by ambulance OOH DNR has been completed and placed on
chart. Per Nevin at [facility] the have a special pharmacy 2 miles from patients home that will deliver pain medication to patient's home at discharge. Patient's daughter, Mary has been updated of discharge time and will be at [facility]
to receive patient.
[facility]
Nevin [phone]
--- NOTE | 2023-09-19 14:38 | W.CARD.DEVCH ---
Cardiac Device Check
-
Device: Implanted Cardioverter-Defibrillator
Breakfast Server: [employer]
The patient's device (BiV ICD) was interrogated personally. The device had normal function. No abnormalities seen.
Patient is going to Hospice with pateint and family discussion. Dr. Gonzalez requested to turn off the tachy therapies. I again confirmed with patient and the family present in the room and all were in agreement.
The tachy therapies, monitor and therapy zones were turned off. The device will continue to work as pacer but will not record or treat the tachy arrhythmia.
[2023-09-19] MEDS: DILAUDID 1 MG IV (14:46)
[2023-09-19] MEDS: SODIUM CHLORIDE PO (16:39)
[2023-09-19] MEDS: TYLENOL PO (16:39)
[2023-09-19] MEDS: NEURONTIN PO (16:39)
--- NOTE | 2023-09-19 18:23 | PTCARENOTE ---
pt discharged w/ fentanyl patch intact on LUE.
== END 2023-09-19 17:25 | disposition hospice, home (50) | DRG 871 ==
LOC: IMU 22:40
PROVIDERS: Clinical Nurse Specialist Family Health; Emergency Medicine; Hospitalist; Internal Medicine Cardiovascular Disease; ADMITTING PHYSICIAN Internal Medicine; ATTENDING PHYSICIAN Internal Medicine; EMERGENCY PHYSICIAN Student in an Organized Health Care Education/Training Program; FAMILY PHYSICIAN Internal Medicine Geriatric Medicine
PROC: 4B02XTZ Measurement of Cardiac Defibrillator, External Approach (ICD-10-PCS; 2023-09-19)
DX: A41.9 Sepsis, unspecified organism (principal); D61.810 Antineoplastic chemotherapy induced pancytopenia; E22.2 Syndrome of inappropriate secretion of antidiuretic hormone; F11.20 Opioid dependence, uncomplicated; I42.7 Cardiomyopathy due to drug and external agent; L03.111 Cellulitis of right axilla; E86.1 Hypovolemia; C50.919 Malignant neoplasm of unspecified site of unspecified female breast; D69.6 Thrombocytopenia, unspecified; R65.20 Severe sepsis without septic shock; K21.9 Gastro-esophageal reflux disease without esophagitis; E66.09 Other obesity due to excess calories; Z68.37 Body mass index [BMI] 37.0-37.9, adult; Z66 Do not resuscitate; Z95.0 Presence of cardiac pacemaker; Z92.3 Personal history of irradiation; T45.1X5A Adverse effect of antineoplastic and immunosuppressive drugs, initial encounter; D64.81 Anemia due to antineoplastic chemotherapy
CPT/HCPCS: 71045; 73200; 80048; 80053; 81003; 82607; 82728; 82746; 83540; 83550; 83605; 83935; 84145; 84300; 84466; 85025; 85027; 87040; 87070; 93005; 94640; 96361; 96374; 96375; 97163; 97167; 97530; 99285